=== PATIENT | female | born 1980 | race Caucasian/White ===

== ENCOUNTER 2024-06-28 15:22 | Outpatient (OUT) | payer OTHER, SELFPAY ==
[2024-06-28 16:17] LABS: Basophils Absolute Auto 0.1 10^3/uL (0.0-0.1); Basophils Percent Auto 0.9 % (0.2-2.0); Eosinophils Absolute Auto 0.2 10^3/uL (0.0-0.7); Eosinophils Percent Auto 3.4 % (0.9-7.0); Hematocrit 42.2 % (36.0-48.0); Hemoglobin 13.9 g/dL (12.0-16.0); Immature Granulocytes Abs Auto 0.01 10^3/uL (0.00-0.03); Immature Granulocytes Pct Auto 0.1 % (0.0-0.5); Lymphocytes Percent Auto 43.3 % (20.5-60.0); Mean Corpuscular HGB Conc 32.9 g/dL (29.9-35.2); Mean Corpuscular Hemoglobin 30.8 pg (26.7-34.0); Mean Corpuscular Volume 93.6 fL (81.0-99.0); Mean Platelet Volume 10.2 fL (9.5-13.5); Monocytes Absolute Auto 0.4 10^3/uL (0.3-0.8); Monocytes Percent Auto 5.2 % (1.7-12.0); Neutrophils Absolute Auto 3.3 10^3/uL (1.4-6.5); Neutrophils Percent Auto 47.1 % (43.0-75.0); Platelet Count 380 10^3/uL (150-450); Red Blood Count 4.51 10^6/uL (4.20-5.40); Red Cell Distribution Width 12.7 % (11.0-15.0)
[2024-06-28 16:18] LABS: Bilirubin Urine NEGATIVE (NEGATIVE); Blood Urine TRACE-I (NEGATIVE); Clarity Urine CLEAR (CLEAR); Color Urine LT. YELLOW (YELLOW); Glucose Urine UA NEGATIVE (NEGATIVE); Ketones Urine NEGATIVE (NEGATIVE); Leukocyte Esterase Urine NEGATIVE (NEGATIVE); Nitrite Urine NEGATIVE (NEGATIVE); Protein Urine NEGATIVE (NEG/TRACE); Specific Gravity Urine <=1.005 (1.005-1.025); Urobilinogen Urine 0.2 EU/dL (0.2-1.0); pH Urine 6.5 (5.0-9.0)
[2024-06-28 16:31] LABS: Urine Microscopic Indicated YES
[2024-06-28 16:33] LABS: Erythrocyte Sedimentation Rate 24 mm/hr (<=20)
[2024-06-28 16:37] LABS: Bacteria Urine TRACE #/HPF (NONE SEEN); Cast Seen? NONE SEEN #/LPF (NONE SEEN); Crystals Seen? None Seen #/HPF (None Seen); Mucus Urine NONE SEEN (NONE SEEN); RBC Urine 0-2 #/HPF (0-2); Squamous Epithelial Cell Urine FEW #/LPF (NONE/RARE); WBC Urine NONE SEEN #/HPF (NONE SEEN)
[2024-06-28 16:38] LABS: Free T4 0.96 ng/dL (0.76-1.46)
[2024-06-28 16:40] LABS: Alanine Aminotransferase 31 U/L (14-59); Albumin Globulin Ratio 1.1; Albumin Level 3.9 g/dL (3.4-5.0); Alkaline Phosphatase 71 U/L (46-116); Anion Gap 11.7; Aspartate Amino Transferase 24 U/L (15-37); BUN Creatinine Ratio 19.4; Bilirubin Total 0.3 mg/dL (0.2-1.0); Calcium 8.7 mg/dL (8.5-10.1); Carbon Dioxide 28.1 mmol/L (21.0-32.0); Chloride 103 mmol/L (98-107); Estimated GFR (African America >60 (>=60 mL/min/1.73m^2); Estimated GFR (Non-African Ame >60 (>=60 mL/min/1.73m^2); Globulin 3.4 g/dL; Glucose 82 mg/dL (74-106); Potassium 3.8 mmol/L (3.5-5.1); Sodium 139 mmol/L (136-145); Thyroid Stimulating Hormone 2.569 uIU/mL (0.358-3.740); Total Protein 7.3 g/dL (6.4-8.2)
[2024-06-30 04:08] LABS: Prolactin 10.5 ng/mL (4.8-33.4)
== END 2024-06-28 15:23 | disposition home or self-care (01) ==
LOC: LAB 15:25
PROVIDERS: PCP Nurse Practitioner; Visit Provider Nurse Practitioner
DX: R42 Dizziness and giddiness (principal); G43.009 Migraine without aura, not intractable, without status migrainosus; Z86.018 Personal history of other benign neoplasm
CPT/HCPCS: 36415; 80053; 81001; 83735; 84146; 84439; 84443; 85025; 85652

== ENCOUNTER 2024-08-11 10:55 | Outpatient (OUT) | payer OTHER, SELFPAY ==
--- NOTE | 2024-08-11 10:57 | MM_ITS ---
Patient Name: LIANE DIAZ MR#: [id number] : 1980 Exam Date: 08/11/2024 Ordering Doctor: TERESITA Mccauley CNP RADIOLOGY REPORT PROCEDURE: MM TOMOSYNTHESIS SCREENING BI COMPARISON: None. INDICATIONS: Screening Calculator Name NCI Breast Cancer Risk Assessment Tool 5 Year Breast Cancer Risk 0.60% Lifetime Breast Cancer Risk 8.00% Personal Breast Cancer No Personal Ovarian Cancer No Treatments None Family Cancers Grandfather-paternal with lung cancer at age ~72; Aunt-maternal with colon cancer at age ~55. LOCATION: [facility] BREAST COMPOSITION: There are scattered areas of fibroglandular density. FINDINGS: DIAGNOSTIC CATEGORY 2--BENIGN FINDING. NO CHANGE FROM COMPARISON. Scattered benign-appearing lymph nodes are present. RIGHT BREAST: No significant suspicious finding. LEFT BREAST: No significant suspicious finding. RECOMMENDATIONS: ROUTINE MAMMOGRAM AND CLINICAL EVALUATION IN 12 MONTHS. PLEASE NOTE: A NORMAL MAMMOGRAM DOES NOT EXCLUDE THE POSSIBILITY OF BREAST CANCER. A CLINICALLY SUSPICIOUS PALPABLE LUMP SHOULD BE BIOPSIED. Dictated by: Nic Wood MD on 08/11/2024 at 15:19 Approved by: Nic Wood MD on 08/11/2024 at 15:20
--- OUTSIDE RECORDS SUMMARY | 2024-08-11 11:10 | XMS_ITS | CCD ---
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 Name Role Phone MISC, DOCTOR Admitting Unavailable MISC, DOCTOR Attending Unavailable MISC, DOCTOR Primary Care Unavailable MISC, DOCTOR Consulting Unavailable Karly Mills Attending Provider Danae Burgess Primary Care Provider Danae Burgess Unavailable Aury Barnes Unavailable ALDA Burgess Primary Care Provider ALDA Santoyo Attending Provider Rosanna Santoyo Unavailable Rosanna Santoyo Attending Unavailable Rosanna Santoyo Admitting Unavailable NO FAMILY, PHYSICIAN Primary Care Unavailable NONE, XXXX Primary Care Physician Unavailab DO Karina Hooks Attending Unavaila DO Karina Anderson Admitting Unavaila Karen Boudreaux NP Primary Care Provider KARINA DENIS Attending Unavailable KAREN MCCAULEY Attending Unavailable KAREN MCCAULEY Referring Unavailable KAREN MCCAULEY Attending Unavailable Allergies Allergy Classification Reported Allergen(s) Allergy Type Date of Onset Reaction(s) Facility (11 sources) [facility] (3 sources) Penicillins (Antibiotic) Propensity to adverse reactions rash [employer] other things [employer] bake Other (8 sources) Penicillins Allergy to substance 4 Hives, Itching, Rash, Unknown [facility] (7 sources) Wound Dressing Adhesive Propensity to adverse reactions 4 Other [facility] Medications Current Medications Medication Drug Class(es) Dates Sig (Normalized) Sig (Original) methylPREDNISolone 4 mg oral tablet (1 source) Corticosteroid Start: 3 methylPREDNISolone 4 MG take half with breakfast, half with dinner Orally as directed for 6 days Mar, Active Wrist/Thumb Splint/Right Univ - (1 source) Start: 3 Wrist/Thumb Splint/Right Univ - as directed Mar, Active Problems Active Problems Problem Classification Problem Date Documented Da te Episodic/Chronic Cancer; other and unspecified primary (12 sources) History of prolactinoma; Translations: [Personal history of other benign neoplasm] Onset: 06-27-2024 06-27-2024 Episodic Conditions associated with dizziness or vertigo (12 sources) Dizziness and giddiness; Translations: [Dizziness and giddiness] Onset: 06-27-2024 06-27-2024 Episodic Headache; including migraine (12 sources) Migraine without aura, not refractory ; Translations: [Migraine without aura, not intractable, without status migrainosus] Onset: 06-27-2024 06-27-2024 Chronic Other connective tissue disease (2 sources) Other enthesopathies, not elsewhere classified Episodic Other injuries and conditions due to external causes (1 source) Unspecified injury of left wrist, hand and finger(s), initial encounter Episodic Other nervous system disorders (1 source) Polyneuropathy, unspecified; Translations: [POLYNEUROPATHY UNSPECIFIED] Onset: 10-15-2020 Chronic Unclassified (1 source) Unspecified injury of left wrist, hand and finger(s), initial encounter; Translations: [Unspecified injury of left wrist, hand and finger(s), initial encounter] Onset: 04-02-2023 Past or Other Problems Problem Classification Problem Date Documented Da te Episodic/Chronic Immunizations and screening for infectious disease (1 source) Contact with and (suspected) exposure to other viral communicable diseases Onset: 08-15-2021 Resolved: 08-15-2021 Episodic Results Test Name Value Interpretation Reference Range Facility MR BRAIN W AND WO CONTRAST ( ROUTINE)on 07-19-2024 MR BRAIN W AND WO CONTRAST (ROUTINE) Addendum is made following new addition of sequences apparently acquired during image acquisition that were not presented at the time of the original dictation: A variant of a pituitary protocol was performed, though the [id number]-[id number] are suboptimal to evaluate the pituitary gland. Initially reported differential considerations remain unchanged based on the newly presented sequences. Normal Not Available ALL CBC WITH AUTO DIFFon BASOPHILS ABSOLUTE [facility]1 [facility] Basophils/100 WBC (Bld) 0.9 % 0.2 - 2.0 % [facility] Eosinophils/100 WBC (Bld) 3.4 % 0.9 - 7.0 % [facility] Erythrocyte distribution width (RBC) [Ratio] 12.7 % 11.0 - 15.0 % [facility] Hematocrit (Bld) [Volume fraction] 42.2 % 36.0 - 48.0 % [facility] Hemoglobin (Bld) [Mass/Vol] 13.9 g/dL 12.0 - 16.0 g/dL [facility] IMMATURE GRANULOCYTES ABS AUTO 0.01 [facility] Immature granulocytes/100 WBC (Bld) 0.1 % 0.0 - 0.5 % [facility] LYMPHOCYTES ABSOLUTE AUTO 3 [facility] Lymphocytes/100 WBC (Bld) 43.3 % 20.5 - 60.0 % [facility] MCH (RBC) [Entitic mass] 30.8 pg 26.7 - 34.0 pg [facility] MCHC (RBC) [Mass/Vol] 32.9 g/dL 29.9 - 35.2 g/dL [facility] MCV (RBC) [Entitic vol] 93.6 fL 81.0 - 99.0 fL [facility] MONOCYTES ABSOLUTE AUTO 0.4 [facility] Monocytes/100 WBC (Bld) 5.2 % 1.7 - 12.0 % [facility] NEUTROPHILS ABSOLUTE AUTO 3.3 [facility] Neutrophils/100 WBC (Bld) 47.1 % 43.0 - 75.0 % [facility] Platelet mean volume (Bld) [Entitic vol] 10.2 fL 9.5 - 13.5 fL [facility] EO # 0.2 [facility] PLT 380 [facility] RBC 4.51 [facility] WBC 7 [facility] FSHon 11-14-2023 Follitropin Qn 16.9 m[IU]/mL Invalid Interpretation Code [facility] Comment on above: Result Comment: Adul t Female Range Follicular phase 3.5 - 12.5 Ovulation phase 4.7 - 21.5 Luteal phase 1.7 - 7.7 Postmenopausal 25.8 - 134.8 Performed at: [address] [id number] PhD Constance Baron Performed By: #### 2 [id number] #### [facility] Laboratory [address] [place] [address] CHEMISTRYOrdered By: SYSTEM SYSTEM on 11-12-2023 Prolactin 12.71 ng/mL Normal 3.34 - 26.72 ng/mL Remisol Chem TSH Qn 2.30 m[IU]/L Normal 0.34 - 5.60 mcIU/mL Remisol Chem Consent for Treatmenton Consent for Treatment [id number] Normal [facility] Physician Orderon 11-12-2023 Physician Order [id number] Normal [facility] Prolactinon 11-12-2023 Prolactin 12.71 ng/mL Normal 3.34-26.72 [facility] Comment on above: Performed By: #### 2 [id number] #### [facility] [address] [place] [address] TSH With T4fr Reflexon 11-11 TSH Qn 2.30 m[IU]/L Normal 0.34-5.60 [facility] Comment on above: Performed By: #### 2 [id number], [id number] #### [facility] [address] [place] [address] XR hand LT min 3V*on 023 XR hand LT min 3V* [facility] Main [address] [address] XRay Report Signed Patient: Norma Alatorre MR#: [id number] : 1980 Acct:[id number] Age/Sex: 43 / F ADM Date: 04/02/23 Loc: XDUCLY Room: Type: [facility] Attending Dr: Rosanna Santoyo MEDICAID BILLING CLERK Copies to: Rosanna Santoyo APRN Ordering Provider: Rosanna Santoyo APRN Date of Service: 04/02/23 XR/XR hand LT min 3V*: Injury of left hand, initial encounter LEFT HAND - 3 views REASON FOR EXAM: Fell 9 days ago now with pain. COMPARISON: None FINDINGS: No focal soft tissue abnormality. No acute bony process is seen. Joint spaces appear maintained. XR/XR hand LT min 3V* IMPRESSION: NO ACUTE BONY PROCESS. Impression dictated by: Renard Childers Jr., D.O.04/02/2023 4:17 PM Dictation Location: [facility] Transcribed By: [facility] 04/02/231616 Dictated By: Renard Childers Jr DO 04/02/23 161 Signed By: 04/02/23 161 Normal [facility] XR hand LT min 3V* [facility] [employer] Other XR hand LT min 3V* [facility] [employer] Other XR hand LT min 3V* [address] [place] [address] [employer] Other XR hand LT min 3V* [address] [employer] Other XR hand LT min 3V* XRay Report [employer] [facility] [employer] Other XR hand LT min 3V* Signed [employer] Other XR hand LT min 3V* Patient: Norma Alatorre MR#: [id number] [place] [employer] Other XR hand LT min 3V* 707 [employer] you [employer] Other XR hand LT min 3V* : 1980 Acct:[id number] [place] [employer] Other XR hand LT min 3V* Age/Sex: 43 / F ADM Date: 04/02/23 [employer] Other XR hand LT min 3V* Loc: XDUCLY Room: Type: REG CLI [employer] Other XR hand LT min 3V* Attending Dr: Rosanna Santoyo APRN [employer] you [employer] Other XR hand LT min 3V* Copies to: Rosanna Santoyo APRN [employer] Other XR hand LT min 3V* Ordering Provider: Rosanna Santoyo APRN [employer] Other XR hand LT min 3V* Date of Service: 04/02/23 [employer] Other XR hand LT min 3V* XR/XR hand LT min 3V*: Injury of left hand, initial encounter [employer] Other XR hand LT min 3V* LEFT HAND - 3 views [employer] Other XR hand LT min 3V* REASON FOR EXAM: Fell 9 days ago now with pain. [employer] other things [employer] Other XR hand LT min 3V* COMPARISON: None [employer] Other XR hand LT min 3V* FINDINGS: [employer] other things you bake Other XR hand LT min 3V* No focal soft tissue abnormality. No acute bony process is seen. Joint spaces appear maintained. [employer] other things you bake Other XR hand LT min 3V* XR/XR hand LT min 3V* [employer] other things you bake Other XR hand LT min 3V* IMPRESSION: [employer] other things you bake Other XR hand LT min 3V* NO ACUTE BONY PROCESS. [employer] other things you bake Other XR hand LT min 3V* Impression dictated by: Renard Childers Jr., D.O.04/02/2023 4:17 PM [employer] other [employer] Other XR hand LT min 3V* Dictation Location: [facility]-15 [employer] Other XR hand LT min 3V* Transcribed By: PWS 04/02/23 [facility] [employer] you bake Other XR hand LT min 3V* Dictated By: Renard Childers Jr, DO 04/02/23 [facility] [employer] other [employer] you bake Other XR hand LT min 3V* Signed By: [employer] you [employer] Other XR hand LT min 3V* 04/02/[address] [place] [address] [employer] Other COVID Quick Testingon 2020 Result Negative [employer] other things you bake Other CBC AUTO DIFFon 10-09-2020 Basophils (Bld) [#/Vol] 0.1 103/ul Normal 0.0-0.1 [facility] Comment on above: Performed By: #### C BC #### [facility] [address] [place], [place] [address] Jonathon Etta Basophils/100 WBC (Bld) 0.5 % Normal 0.2-2.0 [facility] Comment on above: Performed By: #### C BC #### [facility] [address] [place], [place] [address] Jonathon Etta Eosinophils (Bld) [#/Vol] 0.0 103/ul Normal 0.0-0.7 [facility] Comment on above: Performed By: #### C BC #### [facility] [address] [place], [place] [address] Jonathon Etta Eosinophils/100 WBC (Bld) 0.1 % Critically low 0.9-7.0 [facility] Comment on above: Performed By: #### C BC #### [facility] [address] [place], [place] [address] Jonathon Etta Erythrocyte distribution width (RBC) [Ratio] 12.8 % Normal 11.0-15.0 [facility] Comment on above: Performed By: #### C BC #### [facility] [address] [place] [address] Jonathon Quiles Hematocrit (Bld) [Volume fraction] 45.1 % Normal 36.0-48.0 [facility] Comment on above: Performed By: #### C BC #### [facility] [address] [place] [address] Jonathon Etta Hemoglobin (Bld) [Mass/Vol] 14.8 g/dL Normal 12.0-16.0 [facility] Comment on above: Performed By: #### C BC #### [facility] [address] [place] [address] Jonathonmoy Quiles IG # 0.05 10e3/ul Critically high 0.00-0.03 [facility] Comment on above: Performed By: #### C BC #### [facility] [address] [place] [address] Jonathonmoy Quiles IG % 0.5 % Normal 0.0-0.5 [facility] Comment on above: Performed By: #### C BC #### [facility] [address] [place] [address] Jonathonmoy Quiles Lymphocytes (Bld) [#/Vol] 1.2 103/ul Normal 1.2-3.8 [facility] Comment on above: Performed By: #### C BC #### [facility] [address] [place] [address] Jonathon Quiles Lymphocytes/100 WBC (Bld) 12.9 % Critically low 20.5-60.0 [facility] Comment on above: Performed By: #### C BC #### [facility] [address] [place], [place] [id number] Jonathon Quiles MANUAL DIFF REQ NO Normal [facility] Comment on above: Performed By: #### C BC #### [facility] [address] [place] [address] Jonathon Quiles MCH (RBC) [Entitic mass] 31.4 pg Normal 26.7-34.0 [facility] Comment on above: Performed By: #### C BC #### [facility] [address] [place], [place] [address] Jonathonmoy Quiles MCHC (RBC) [Mass/Vol] 32.8 g/dL Normal 29.9-35.2 [facility] Comment on above: Performed By: #### C BC #### [facility] [address] [place] [id number] Jonathon Etta MCV (RBC) [Entitic vol] 95.6 fL Normal 81.0-99.0 [facility] Comment on above: Performed By: #### C BC #### [facility] [address] [place], [place] [id number] Jonathon Etta Monocytes (Bld) [#/Vol] 0.2 103/ul Critically low 0.3-0.8 [facility] Comment on above: Performed By: #### C BC #### [facility] [address] [place], [place] [address] Jonathon Etta Monocytes/100 WBC (Bld) 1.8 % Normal 1.7-12.0 [facility] Comment on above: Performed By: #### C BC #### [facility] [address] [place], [place] [id number] Jonathon Etta Neutrophils (Bld) [#/Vol] 8.0 103/ul Critically high 1.4-6.5 [facility] Comment on above: Performed By: #### C BC #### [facility] [address] [place], [place] [address] Jonathon Etta Neutrophils/100 WBC (Bld) 84.2 % Critically high 43.0-75.0 [facility] Comment on above: Performed By: #### C BC #### [facility] [address] [place], [place] [id number] Jonathon Etta Platelet mean volume (Bld) [Entitic vol] 10.0 fL Normal 9.5-13.5 [facility] Comment on above: Performed By: #### C BC #### [facility] [address] [place], [place] [id number] Jonathon Etta Platelets (Bld) [#/Vol] 361 103/ul Normal 150-450 [facility] Comment on above: Performed By: #### C BC #### [facility] [address] [id number] Jonathon Quiles RBC (Bld) [#/Vol] 4.72 106/ul Normal 4.20-5.40 [facility] Comment on above: Performed By: #### C BC #### [facility] [address] [place], [place] [address] Jonathon Etta WBC (Bld) [#/Vol] 9.5 103/ul Normal 4.0-11.0 [facility] Comment on above: Performed By: #### C BC #### [facility] [address] [place], [place] [address] Jonathon Quiles FREE T4on 10-09-2020 Free T4 [Mass/Vol] 1.01 ng/dL Normal 0.78-2.19 [facility] Comment on above: Performed By: #### F T4 #### [facility] [address] [place], [place] [address] Jonathonmoy Quiles GLYCOHEMOGLOBIN A1Con 2020 Glucose [Mass/Vol] 111 mg/dL Normal [facility] Comment on above: Performed By: #### A 1C #### [facility] [address] [place], [place] [address] Jonathon Quiles HbA1c (Bld) [Mass fraction] 5.5 % Normal <=6.0 [facility] Comment on above: Performed By: #### A 1C #### [facility] [address] [place], [place] [address] Jonathon Quiles LIPID PROFILEon 10-09-2020 CHOL-HDL RATIO NORM SEE BELOW Normal [facility] Comment on above: Result Comment: 3.3 - 4.4 LOW RISK 4.4 - 7.1 AVERAGE RISK 7.1 - 11.0 MODERATE RISK >11.0 HIGH RISK Performed By: #### C MP, LIPID, TSH #### [facility] [address] [place], [place] [address] Jonathon Etta Cholesterol [Mass/Vol] 202 mg/dL Critically high <=200 [facility] Comment on above: Performed By: #### C MP, LIPID, TSH #### [facility] [address] [place], [place] [address] Jonathon Etta Cholesterol in HDL [Mass/Vol] > or = 60 mg/dl - LOW CARDIOVASCULAR RISK <40 mg/dl - HIGH CARDIOVASCULAR RISK Normal [facility] Comment on above: Performed By: #### C MP, LIPID, TSH #### [facility] [address] [place], [place] [address] Jonathon Etta Cholesterol in HDL [Mass/Vol] 79 mg/dL Normal [facility] Comment on above: Performed By: #### C MP, LIPID, TSH #### [facility] [address] [place] [id number] Jonathon Etta Cholesterol in LDL [Mass/Vol] SEE BELOW Normal [facility] Comment on above: Result Comment: <100 mg/dl OPTIMAL 100 - 129 mg/dl NEAR OR ABOVE OPTIMAL 130 - 159 mg/dl BORDERLINE HIGH 160 - 189 mg/dl HIGH >190 mg/dl VERY HIGH Performed By: #### C MP, LIPID, TSH #### [facility] [address] [place], [place] [address] Jonathon Etta Cholesterol in LDL [Mass/Vol] 109.2 mg/dL Normal [facility] Comment on above: Performed By: #### C MP, LIPID, TSH #### [facility] [address], [place] [address] Jonathon Etta Cholesterol.total/Ch olesterol in HDL [Mass ratio] 2.6 {ratio} Normal [facility] Comment on above: Performed By: #### C MP, LIPID, TSH #### [facility] [address] [place], [place] [address] Jonathon Etta Triglyceride [Mass/Vol] 69 mg/dL Normal <=150 [facility] Comment on above: Performed By: #### C MP, LIPID, TSH #### [facility] [address] [place], [place] [address] Jonathon Etta VLDL CALC 13.8 mg/dL Normal [facility] Comment on above: Performed By: #### C MP, LIPID, TSH #### [facility] [address] [place], [place] [address] Jonathon Etta PROF 14(COMP METB)on 021 Albumin [Mass/Vol] 4.1 g/dL Normal 3.5-5.0 [facility] Comment on above: Performed By: #### C MP, LIPID, TSH #### [facility] [address] [place], [place] [address] Jonathon Etta Albumin/Globulin [Mass ratio] 1.2 {ratio} Normal [facility] Comment on above: Performed By: #### C MP, LIPID, TSH #### [facility] [address] [place] [id number] Jonathon Etta ALP [Catalytic activity/Vol] 50 U/L Normal 38-126 [facility] Comment on above: Performed By: #### C MP, LIPID, TSH #### [facility] [address] [place] [id number] Jonathon Etta ALT [Catalytic activity/Vol] 23 U/L Normal 9-52 [facility] Comment on above: Performed By: #### C MP, LIPID, TSH #### [facility] [address] [place] [id number] Jonathon Etta Anion gap [Moles/Vol] 10.4 mmol/L Normal [facility] Comment on above: Performed By: #### C MP, LIPID, TSH #### [facility] [address] [place] [id number] Jonathon Etta AST [Catalytic activity/Vol] 13 U/L Critically low 14-36 [facility] Comment on above: Performed By: #### C MP, LIPID, TSH #### [facility] [address] [id number] Jonathon Etta Bilirubin Ql (U) 0.6 mg/dL Normal 0.2-1.3 [facility] Comment on above: Performed By: #### C MP, LIPID, TSH #### [facility] [address] [place], [place] [address] Jonathon Etta Calcium [Mass/Vol] 8.9 mg/dL Normal 8.4-10.2 [facility] Comment on above: Performed By: #### C MP, LIPID, TSH #### [facility] [address] [id number] Jonathon Etta Chloride [Moles/Vol] 103 mmol/L Normal 98-107 [facility] Comment on above: Performed By: #### C MP, LIPID, TSH #### [facility] [address] [place] [address] Jonathon Etta CO2 [Moles/Vol] 30.7 mmol/L Critically high 22.0-30.0 [facility] Comment on above: Performed By: #### C MP, LIPID, TSH #### [facility] [address] [address] Jonathon Etta Creatinine [Mass/Vol] 0.83 mg/dL Normal 0.52-1.04 [facility] Comment on above: Performed By: #### C MP, LIPID, TSH #### [facility] [address] [place] [address] Jonathon Etta EGFR-AF ARGENTINE >60 Normal >=60 [facility] Comment on above: Performed By: #### C MP, LIPID, TSH #### [facility] [address] [place] [address] Jonathon Etta EGFR-NON AF ARGENTINE >60 Normal >=60 [facility] Comment on above: Performed By: #### C MP, LIPID, TSH #### [facility] [address] [place] [id number] Jonathon Etta Globulin (S) [Mass/Vol] 3.4 g/dL Normal [facility] Comment on above: Performed By: #### C MP, LIPID, TSH #### [facility] [address] [place] [address] Jonathon Etta Glucose [Mass/Vol] 90 mg/dL Normal 74-106 [facility] Comment on above: Performed By: #### C MP, LIPID, TSH #### [facility] [address] [address] Jonathon Etta Potassium [Moles/Vol] 4.1 mmol/L Normal 3.4-5.0 [facility] Comment on above: Performed By: #### C MP, LIPID, TSH #### [facility] [address] [place], [place] [address] Jonathon Etta Protein [Mass/Vol] 7.5 g/dL Normal 6.1-8.2 [facility] Comment on above: Performed By: #### C MP, LIPID, TSH #### [facility] [address] [place], [place] [address] Jonathon Etta Sodium [Moles/Vol] 140 mmol/L Normal 137-145 [facility] Comment on above: Performed By: #### C MP, LIPID, TSH #### [facility] [address] [place], [place] [address] Jonathon Etta Urea nitrogen [Mass/Vol] 14.0 mg/dL Normal 7.0-17.0 [facility] Comment on above: Performed By: #### C MP, LIPID, TSH #### [facility] [address] [place], [place] [address] Jonathon Etta Urea nitrogen/Creatinine [Mass ratio] 16.9 mg/mg Normal [facility] Comment on above: Performed By: #### C MP, LIPID, TSH #### [facility] [address] [place], [place] [address] Jonathon Etta TSHon 10-09-2020 TSH Qn 1.432 uIU/mL Normal 0.470-4.680 [facility] Comment on above: Performed By: #### C MP, LIPID, TSH #### [facility] [address] [place], [place] [address] Jonathon Etta TSH Qn SEE BELOW Normal [facility] Comment on above: Result Comment: <0.3 4 UIU/ml HYPERTHYROID 0.34-5.60 UIU/ml EUTHYROID >5.60 UIU/ml HYPOTHYROID Performed By: #### C MP, LIPID, TSH #### [facility] [address] [place], [place] [address] Jonathon Etta Vital Signs Date Time Vital Sign Value Performing Clinician Facility 07-27-2024 15:58-0500 Body height 162.6 cm Karen Mccauley NP Work Phone: [facility] 07-27-2024 15:58-0500 Body mass index (BMI) [Ratio] 24.41 kg/m2 Karen Mccauley EDITOR DICTIONARY Work Phone: [facility] 07-27-2024 15:58-0500 Body temperature 97.81 [degF] Karen Fishgideon EDITOR DICTIONARY Work Phone: [facility] 07-27-2024 15:58-0500 Body weight 64.5 kg Karen Fishz EDITOR DICTIONARY Work Phone: [facility] 07-27-2024 15:58-0500 Diastolic blood pressure 80 mm[Hg] Karen Garciamodestaz EDITOR DICTIONARY Work Phone: [facility] 07-27-2024 15:58-0500 Heart rate 59 /min Karen Fishgideon EDITOR DICTIONARY Work Phone: [facility] 07-27-2024 15:58-0500 Respiratory rate 18 /min Karentae Fishz EDITOR DICTIONARY Work Phone: [facility] 07-27-2024 15:58-0500 SaO2% (BldA) [Mass fraction] 97 % Karen Fishz EDITOR DICTIONARY Work Phone: [facility] 07-27-2024 15:58-0500 Systolic blood pressure 110 mm[Hg] Karen Fishgideon EDITOR DICTIONARY Work Phone: [facility] 06-27-2024 14:23-0400 Body height 162.6 cm Karen Fishz EDITOR DICTIONARY Work Phone: [facility] 06-27-2024 14:23-0400 Body mass index (BMI) [Ratio] 23.79 kg/m2 Karentae Garciaholz EDITOR DICTIONARY Work Phone: [facility] 06-27-2024 14:23-0400 Body temperature 98.2 [degF] Karen Garciamodestaz EDITOR DICTIONARY Work Phone: [facility] 06-27-2024 14:23-0400 Body weight 62.87 kg Karen Aichholz EDITOR DICTIONARY Work Phone: [facility] 06-27-2024 14:23-0400 Diastolic blood pressure 74 mm[Hg] Karen Mccauley EDITOR DICTIONARY Work Phone: [facility] 06-27-2024 14:23-0400 Heart rate 65 /min Karen Mccauley EDITOR DICTIONARY Work Phone: [facility] 06-27-2024 14:23-0400 Respiratory rate 18 /min Karen Mccauley EDITOR DICTIONARY Work Phone: [facility] 06-27-2024 14:23-0400 SaO2% (BldA) [Mass fraction] 97 % Karen Mccauley EDITOR DICTIONARY Work Phone: [facility] 06-27-2024 14:23-0400 Systolic blood pressure 108 mm[Hg] Karen Mccauley EDITOR DICTIONARY Work Phone: [facility] 11-25-2023 15:20-0400 Body height 162.56 cm [facility] 11-25-2023 15:20-0400 Body mass index (BMI) [Ratio] 23.8 kg/m2 [facility] 11-25-2023 15:20-0400 Body temperature 99.1 [degF] [facility] 11-25-2023 15:20-0400 Body weight 62.82 kg [facility] 11-25-2023 15:20-0400 Diastolic blood pressure 71 mm[Hg] [facility] 11-25-2023 15:20-0400 Heart rate 79 /min [facility] 11-25-2023 15:20-0400 Respiratory rate 18 /min [facility] 11-25-2023 15:20-0400 SaO2% (BldA) [Mass fraction] 96 % [facility] 11-25-2023 15:20-0400 Systolic blood pressure 111 mm[Hg] [facility] 04-02-2023 15:30-0400 Body height 161.29 cm Rosanna Santyoo Other [employer] Other 04-02-2023 15:30-0400 Body mass index (BMI) [Ratio] 21.79 kg/m2 Rosanna Silverley Other [employer] [facility] [employer] [facility] [employer] Other 04-02-2023 15:30-0400 Body weight 56.7 kg Rosanna Silverley Other [employer] [facility] [employer] [facility] [employer] Other 04-02-2023 15:30-0400 Diastolic blood pressure 72 mm[Hg] Rosanna Silverley Other [employer] [facility] [employer] Other 04-02-2023 15:30-0400 Respiratory rate 18 /min Rosanna Silverley Other [employer] [facility] [employer] [facility] [employer] Other 04-02-2023 15:30-0400 SaO2% (BldA) [Mass fraction] 94 % Rosanna Silverley Other [employer] [facility] [employer] Other 04-02-2023 15:30-0400 Systolic blood pressure 117 mm[Hg] Rosanna Silverley Other [employer] [facility] [employer] Other 08-15-2021 13:45-0500 Body height 161.29 cm Aury Ginty Other [employer] [facility] [employer] Other 08-15-2021 13:45-0500 Body mass index (BMI) [Ratio] 21.79 kg/m2 Aury Ginty Other [employer] [facility] [employer] Other 08-15-2021 13:45-0500 Body temperature 97 [degF] Aury Ginty Other [employer] Other 08-15-2021 13:45-0500 Body weight 56.7 kg Aury Ginty Other [employer] [facility] [employer] Other 08-15-2021 13:45-0500 Respiratory rate 16 /min Aury Barnes Other [employer] Other 08-15-2021 13:45-0500 SaO2% (BldA) [Mass fraction] 99 % Aury Barnes Other [employer] Other Encounters Encounter Date Encounter Type Care Provider Facility Start: 07-27-2024 End: 07-27-2024 Office outpatient visit 15 minutes Karentae Mccauley EDITOR DICTIONARY Work Phone: [facility] Comment on above: Dizziness and giddin ess (Primary Dx); Migraine without aura and without status migrainosus, not intractable ([facility]); History of prolactinoma Start: 07-27-2024 End: 07-27-2024 ambulatory KAREN AICHHOLZ Not Available Start: 07-27-2024 End: 07-27-2024 Bamboo flowsheet Karen Aichholz EDITOR DICTIONARY Work Phone: [facility] Start: 07-27-2024 End: 07-27-2024 Bamboo flowsheet Karen Aichholz EDITOR DICTIONARY Work Phone: [facility] Start: 07-19-2024 End: 07-19-2024 ambulatory KAREN AICHHOLZ Not Available Start: 06-28-2024 End: 06-28-2024 Clinisync Result Encounter Karen Johannehholz EDITOR DICTIONARY Work Phone: [facility] Unsolicited Start: 06-28-2024 End: 06-28-2024 Clinisync Result Encounter Karen Aichholz EDITOR DICTIONARY Work Phone: [facility] Unsolicited Start: 06-27-2024 End: 06-27-2024 Office outpatient visit 25 minutes Karen Aicmoyholz EDITOR DICTIONARY Work Phone: [facility] Comment on above: Dizziness and giddin ess (Primary Dx); Migraine without aura and without status migrainosus, not intractable (CMS/HCC); History of prolactinoma Start: 06-27-2024 End: 06-27-2024 ambulatory KAREN GARCIAMODESTAGideon Not Available Start: 06-27-2024 End: 06-27-2024 Bamboo flowsheet Karen Mccauley EDITOR DICTIONARY Work Phone: [facility] Start: 06-27-2024 End: 06-27-2024 Bamboo flowsheet Karen Mccauley EDITOR DICTIONARY Work Phone: [facility] Start: 11-25-2023 End: 11-25-2023 ambulatory [facility] Work Phone: Start: 11-25-2023 End: 11-25-2023 Patient encounter procedure [facility] Work Phone: Start: 11-12-2023 End: 11-13-2023 ambulatory DO Karina Denis Facility:[facility] Start: 11-12-2023 End: 11-12-2023 Patient encounter procedure Karina Denis [facility] Start: 11-09-2023 End: 11-09-2023 ambulatory KARINA DENIS Not Available Start: 04-02-2023 End: 04-02-2023 ambulatory Rosanna Santoyo Facility:[facility] Start: 04-02-2023 End: 04-02-2023 Patient encounter procedure ALDA Burgess Work Phone: [facility] Work Phone: Start: 04-02-2023 End: 04-02-2023 ambulatory ALDA Burgess Work Phone: [facility] Work Phone: Start: 04-02-2023 Office outpatient vi sit 15 minutes Rosanna Santoyo [facility] Start: 08-15-2021 End: 08-15-2021 ambulatory Danae Burgess Other [employer] Other Start: 08-15-2021 Encounter by yeimy Burgess [facility] Start: 08-15-2021 Office outpatient vi sit 15 minutes Aury Barnes [facility] Start: 01-10-2021 End: 01-10-2021 Discharged Recurring Karly Mills Work Phone: [facility] Start: 10-15-2020 Encounter for genera l adult medical examination without abnormal findings [facility] Start: 10-09-2020 End: 10-10-2020 Patient encounter procedure [facility] Facility: Encounter for genera l adult medical examination without abnormal findings [facility] Procedures Date Procedure Procedure Detail Performing Clinician Start: 06-28-2024 ALL CBC WITH AUTO DIFF Karen Mccauley EDITOR DICTIONARY Work Phone: Start: 11-09-2023 Microscopic observat ion [Identifier] in Cervix by Cyto stain Karen Mccauley EDITOR DICTIONARY Work Phone: Start: 04-02-2023 Plain X-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 [address] [facility] Start: 09-22-2024 End: 09-22-2024 Patient encounter procedure 09/22/2024 3:00 PM EST Office Visit [facility] [address] [place] [address] Karen Mccauley, EDITOR DICTIONARY [address] [place] [address] [facility] Start: 07-27-2024 End: 07-27-2024 Patient encounter procedure 07/27/2024 3:40 PM EST Office Visit [facility] [address] [place] [address] Karen Mccauley, EDITOR DICTIONARY [address] [place] [id number] Arrived [facility] Comment on above: Arrived Start: 07-19-2024 End: 07-19-2024 Patient encounter procedure 07/19/2024 3:00 PM EST Office Visit [facility] [address] [place] [address] Karen Mccauley, EDITOR DICTIONARY [address] [place] [phone] [facility] Start: 06-27-2024 End: 06-27-2024 Patient encounter procedure 06/27/2024 2:20 PM EDT Office Visit [facility] [address] [place] [address] Karen Mccauley, EDITOR DICTIONARY [address] [place] [id number] Arrived [facility] Comment on above: Arrived Start: 06-27-2024 End: 06-27-2025 CBC W Auto Differential panel - Blood CBC and differential Lab Routine Dizziness and giddiness Expected: 06/27/2024 (Approximate), Expires: 06/27/2025 [facility] Work Phone: Comment on above: Expected: 06/27/2024 (Approximate), Expires: 06/27/2025 Start: 06-27-2024 End: 06-27-2025 Comprehensive metabolic 2000 panel - Serum or Plasma Comprehensive metabolic panel Lab Routine Dizziness and giddiness Expected: 06/27/2024 (Approximate), Expires: 06/27/2025 [facility] Comment on above: Expected: 06/27/2024 (Approximate), Expires: 06/27/2025 Start: 06-27-2024 End: 06-27-2025 Erythrocyte sedimentation rate Sedimentation rate, automated Lab Routine Dizziness and giddiness Migraine without aura and without status migrainosus, not intractable (CMS/HCC) Expected: 06/27/2024 (Approximate), Expires: 06/27/2025 [facility] Comment on above: Expected: 06/27/2024 (Approximate), Expires: 06/27/2025 Start: 06-27-2024 End: 06-27-2025 Magnesium [Mass/volume] in Serum or Plasma Magnesium Lab Routine Migraine without aura and without status migrainosus, not intractable (CMS/HCC) Expected: 06/27/2024 (Approximate), Expires: 06/27/2025 [facility] Comment on above: Expected: 06/27/2024 (Approximate), Expires: 06/27/2025 Start: 06-27-2024 End: 06-27-2025 Prolactin level Prolactin level Lab Routine History of prolactinoma Expected: 06/27/2024 (Approximate), Expires: 06/27/2025 [facility] Comment on above: Expected: 06/27/2024 (Approximate), Expires: 06/27/2025 Start: 06-27-2024 End: 06-27-2025 Thyrotropin [Units/volume] in Serum or Plasma TSH Lab Routine Dizziness and giddiness Expected: 06/27/2024 (Approximate), Expires: 06/27/2025 [facility] Comment on above: Expected: 06/27/2024 (Approximate), Expires: 06/27/2025 Start: 06-27-2024 End: 06-27-2025 Thyroxine (T4) free [Mass/volume] in Serum or Plasma T4, free Lab Routine Dizziness and giddiness Expected: 06/27/2024 (Approximate), Expires: 06/27/2025 [facility] Comment on above: Expected: 06/27/2024 (Approximate), Expires: 06/27/2025 Start: 06-27-2024 End: 06-27-2025 Urinalysis complete panel - Urine Urinalysis with reflex microscopic (clean catch) Lab Routine History of prolactinoma Expected: 06/27/2024 (Approximate), Expires: 06/27/2025 [facility] Comment on above: Expected: 06/27/2024 (Approximate), Expires: 06/27/2025 Start: 05-08-2024 Influenza vaccination Influenza Vacc ine (#1) [facility] Start: 2021 Screening for malign ant neoplasm of breast Mammogram [facility] Start: 2011 Screening for malign ant neoplasm of cervix HPV/Cotest [facility] Immunizations Immunization Date Immunization Notes Care Provider Juan resendiz 01-10-2021 COVID-19 mRNA,MUT126 b2 (Pfizer) Karly Mills Work Phone: [facility] Payers Date Payer Category Payer Private Health Insurance [id number] 2023 Self-pay [id number] 2023 Unknown [id number] 2.16.8 [id number] 1981 Unknown [id number] 2.16.84 [id number] 1981 Unknown [id number] 2.16.8 [id number] 1981 Unknown [id number] 2.16.84 [id number] 1981 Unknown [id number] 2.16.84 [id number] 1981 Unknown [id number] 2.16.84 [id number] 1981 Unknown [id number] 2.16.84 [id number] 1959 Unknown [id number] Unknown [id number] Unknown [id number] Unknown [id number] 2.16.8 [id number] Social History Date Type Detail Facility Tobacco smoking stat us [facility] Unknown if ever smoked [facility] Start: 1980 Sex Assigned At Female F [facility] Start: 11-09-2023 End: 07-26-2024 Sex Assigned At [facility] Tobacco smoking status No Smokin g Status Entered [facility] Start: 11-09-2023 End: 11-25-2023 Tobacco smoking status NHIS Never smoked tobacco (finding) [facility] Start: 11-09-2023 Tobacco use and exposure Smokeless tobacco non-user [facility] Start: 11-09-2023 End: 07-27-2024 Alcoholic beverage intake Current drinker of alcohol (finding) [facility] Start: 11-09-2023 End: 07-26-2024 History of Social function [facility] Start: 07-14-2023 Gender identity Identifies as female gender (finding) [facility] Start: 07-14-2023 Sexual orientation Heterosexual (fin ding) [facility] How often do you nee d to have someone help you when you read instructions, pamphlets, or other written material from your doctor or pharmacy [SILS] Never [facility] Do you belong to any clubs or organizations such as taoist groups, unions, fraternal or athletic groups, or school groups? No [facility] Are you now , , , , never or living with a partner? Living with partner [facility] How often to you hav e a drink containing alcohol? Monthly or less [facility] How many standard drinks containing alcohol do you have on a typical day? 1 or 2 [facility] How often do you hav e 6 or more drinks on 1 occasion? Never [facility] How hard is it for y ou to pay for the very basics like food, housing, medical care, and heating Not very hard [facility] Do you feel stress - tense, restless, nervous, or anxious, or unable to sleep at night because your mind is troubled all the time - these days [OSQ] Only a little [facility] (I/We) worried wheth er (my/our) food would run out before (I/we) got money to buy more. Never true [facility] NEGATED: Highlighted rowStart: SUYAPAF History of tobacco use Passive smoker [facility] Clinical Notes 08-15-2021 to 07-27-2024 Karen Mccauley NP - 07/27/2024 6:02 PM Rafael Mccauley NP - 07/27/2024 6:01 PM Rafael Mccauley NP - 07/27/2024 6:00 PM GLENROY GARCIA - 07/27/2024 3:40 PM ESTPatient Instructions Note Date & Type Note Facility 07-27-2024 History of Present illness Narrative Associated Problem(s): Dizziness and giddiness Labs normal Will start with neurology referral and go from there Associated Problem(s): History of prolactinoma Normal prolactin level MRI brain report quite confusion, will attempt to contact [facility] Radiologist to discuss with them the results, possible comparison to prior one Refer to Neuro Associated Problem(s): Migraine headache (CMS/HCC) Unclear if current sxs are related to her migraines with different variant of what Will review to neurology for second opinion Pt is still having episodes that are spiratic through out the day Pt recalls having an episode 1-2 weeks ago on (felt like she was going to pass out/ds it like the iv contrast going through her for the MRI machine feeling) pt stated she had the MRI done on the . She did have a time she felt odd in between those dates as well Pt is getting headaches- she's had 4 since her last visit Images from the original note were not included. Norma Alatorre is a 44 y.o. female presents with chief complaint of No chief complaint on file. HPI: HPI: Sxs started a couple months ago: heart racing, some shortness of breath, happens more active she is. Feels flushed in face, hot flash, no chest pain/pressure/heaviness or tightness,,last possibly 10 minutes or so. A month ago: confused, hard time sentence out, missing things at work. Hx Migraines: as far back as she remembers, usually severe pounding /pressure favors right side more, 5 years ago added symtpoms nausea. Prior to magnesium 3-5 times per month, then lessened may 2 in the last 6 months. Has hx pituitary adenoma, lost in follow up, sees dr mirian Morales in [facility], referred by [employer], possibly dating back to 2017. Denies any hx of double vision, blurry vision Family hx: migraines, no strokes, daughter has neurocardiogenic syncope, no brain anurysms, no MS. Stress levels; feels good, hx of depression/anxiety/panic attack, off meds since 2014 no issues Caffeine: coffee in the morning, and 1 pop at night,, rare ETOH use, no substance abuse SUBJECTIVE: MEDICATIONS: No current outpatient medications ALLERGIES: Allergies Allergen Reactions Morphine Hives Wound Dressing Adhesive Other Penicillins Hives, Itching, Rash and Unknown REVIEW OF SYMPTOMS: Review of Systems Constitutional: Negative for appetite change, chills and fever. HENT: Negative for congestion, ear pain and sore throat. Eyes: Negative for pain, discharge, redness and visual disturbance. Respiratory: Negative for cough, shortness of breath and wheezing. Cardiovascular: Negative for chest pain, palpitations and leg swelling. Gastrointestinal: Negative for abdominal pain, blood in stool, constipation, diarrhea, nausea and vomiting. Genitourinary: Negative for difficulty urinating, dysuria and frequency. Musculoskeletal: Negative for arthralgias, back pain, joint swelling and myalgias. Skin: Negative for rash and wound. Neurological: Positive for dizziness and headaches. Negative for tremors, seizures and syncope. Psychiatric/Behavioral: Negative for behavioral problems, self-injury and suicidal ideas. The patient is not nervous/anxious. Hematological: Does not bruise/bleed easily. Endocrine: Negative for polydipsia, polyphagia and polyuria. Allergic/Immunologic: Negative for environmental allergies and food allergies. PAST MEDICAL HISTORY Past Medical History: Diagnosis Date Adenomyosis Gallbladder disease 2007 H/O wisdom tooth extraction History of cholecystectomy Menorrhagia Migraine (CMS/HCC) Pelvic pain Past Surgical History: Procedure Laterality Date CHOLECYSTECTOMY 09/2008 FOOT SURGERY Right LAPAROSCOPIC HYSTERECTOMY 09/2009 Heavy bleeding LAPAROSCOPIC HYSTERECTOMY 2007 [facility] ; Disease: adenomyosis , pelvic pain, menorrhagia family history includes COPD in her mother; Colon cancer in an other family member; Depression in her mother; Lung cancer in her maternal grandfather; No Known Problems in her daughter. OBJECTIVE: Visit Vitals BP 110/80 (BP Location: Left arm, Patient Position: Sitting, BP Cuff Size: Adult long) Pulse 59 Temp 97.8 F (Temporal) Resp 18 Ht 5' 4 Wt 142 lb 3.2 oz SpO2 97% BMI 24.41 kg/m OB Status No Periods Smoking Status Never BSA 1.71 m Physical Exam Vitals and nursing note reviewed. Constitutional: General: She is not in acute distress. Appearance: Normal appearance. HENT: Head: Normocephalic and atraumatic. Right Ear: External ear normal. Left Ear: External ear normal. Nose: Nose normal. Mouth/Throat: Mouth: Mucous membranes are moist. Eyes: Extraocular Movements: Extraocular movements intact. Conjunctiva/sclera: Conjunctivae normal. Cardiovascular: Rate and Rhythm: Normal rate and regular rhythm. Pulses: Normal pulses. Heart sounds: Normal heart sounds. Pulmonary: Effort: Pulmonary effort is normal. Breath sounds: Normal breath sounds. Abdominal: General: Bowel sounds are normal. There is no distension. Palpations: Abdomen is soft. There is no mass. Tenderness: There is no abdominal tenderness. Musculoskeletal: General: Normal range of motion. Cervical back: Normal range of motion and neck supple. Right lower leg: No edema. Left lower leg: No edema. Skin: General: Skin is warm and dry. Capillary Refill: Capillary refill takes 2 to 3 seconds. Findings: No rash. Neurological: General: No focal deficit present. Mental Status: She is alert and oriented to person, place, and time. Psychiatric: Mood and Affect: Mood normal. Behavior: Behavior normal. Thought Content: Thought content normal. Judgment: Judgment normal. ASSESSMENT AND PLAN: Follow up in about 2 months (around 09/26/2024) for Recheck. Problem List Items Addressed This Visit Dizziness and giddiness - Primary Labs normal Will start with neurology referral and go from there Relevant Orders Ambulatory referral to Neurology Migraine headache (CMS/HCC) Unclear if current sxs are related to her migraines with different variant of what Will review to neurology for second opinion Relevant Orders Ambulatory referral to Neurology History of prolactinoma Normal prolactin level MRI brain report quite confusion, will attempt to contact [facility] Radiologist to discuss with them the results, possible comparison to prior one Refer to Neuro Relevant Orders Ambulatory referral to Neurology documented in this encounter [facility] 07-27-2024 Instructions Karen Mccauley NP - 07/27/2024 3:40 PM EST Referral to [facility] Neurology in [place] (previous [facility]) documented in this encounter [facility] 06-27-2024 History of Present illness Narrative Associated Problem(s): Dizziness and giddiness Check labs Differentials: migraine, cardiac, psych Fu in 3 weeks after labs and testing Reviewed stroke type symptoms if occur, go to ER Associated Problem(s): History of prolactinoma No fu for some time Will order prolactin level, and also check about imaging Associated Problem(s): Migraine headache (CMS/HCC) No current symptoms, however this may be related to migraine variant MRI needed, will check with radiology since we also need pituitary look as well Pt states that she had an episode on - around 1pm typical work day, pt experienced a body wave and two sharp panes in the right eye bow back to back, pains were short and did not last long however they were intense during. After the pain had stopped pt states she was shaky all over that last 20 mins or so. Pt states she did have lunch at 11:15am and drinks water through out the day. Pt went to [facility] where they did her bp and had 130s/80s and checked her sugar which was in the 80s She does suffer with migraines- she takes magnesium she was getting them 3-5times a month but now takes the mag and is now rare for her to get migraines. Pt takes estrovin complete for perimenopause an otc vitamin supplement Pt states that a month ago she had a different episode where she became confused, felt like she was in a fog that had messed with her speech or combinative awareness and concentration on her job. She states that she had slight confusion that lasted a couple days Pt states that she has never had an episode like that before however, pt states in the last few months though she has been going through a full body sweat when she is on the move and has a racing heart she typically needs to stop until she is fully cooled down Images from the original note were not included. Norma Alatorre is a 44 y.o. female presents with chief complaint of No chief complaint on file. HPI: Sxs started a couple months ago: heart racing, some shortness of breath, happens more active she is. Feels flushed in face, hot flash, no chest pain/pressure/heaviness or tightness,,last possibly 10 minutes or so. Then resolves.no dizziness However last episode at work, felt wavy, broke out in sweat, felt warm, 2 sharp pains to right alevism area, then got shaky feeling No NT or weakness to any side of body, no trouble with speech. A month ago: confused, hard time sentence out, missing things at work. Hx Migraines: as far back as she remembers, usually severe pounding /pressure favors right side more, 5 years ago added symtpoms nausea. Prior to magnesium 3-5 times per month, then lessened january 2 in the last 6 months. Has hx pituitary adenoma, lost in follow up, sees dr mirian Morales in [facility], referred by [employer], possibly dating back to 2017. Denies any hx of double vision, blurry vision Family hx: migraines, no strokes, daughter has neurocardiogenic syncope, no brain anurysms, no MS. Stress levels; feels good, hx of depression/anxiety/panic attack, off meds since 2014 no issues Caffeine: coffee in the morning, and 1 pop at night,, rare ETOH use, no substance abuse SUBJECTIVE: MEDICATIONS: No current outpatient medications ALLERGIES: Allergies Allergen Reactions Morphine Hives Wound Dressing Adhesive Other Penicillins Hives, Itching, Rash and Unknown REVIEW OF SYMPTOMS: Review of Systems Constitutional: Positive for hot flashes. Negative for appetite change, chills and fever. HENT: Negative for congestion, ear pain and sore throat. Eyes: Negative for pain, discharge, redness and visual disturbance. Respiratory: Negative for cough, shortness of breath and wheezing. Cardiovascular: Positive for palpitations. Negative for chest pain and leg swelling. Gastrointestinal: Negative for abdominal pain, blood in stool, constipation, diarrhea, nausea and vomiting. Genitourinary: Negative for difficulty urinating, dysuria and frequency. Musculoskeletal: Negative for arthralgias, back pain, joint swelling and myalgias. Skin: Negative for rash and wound. Neurological: Positive for dizziness and headaches. Negative for tremors, seizures and syncope. Psychiatric/Behavioral: Negative for behavioral problems, self-injury and suicidal ideas. The patient is not nervous/anxious. Hematological: Does not bruise/bleed easily. Endocrine: Negative for polydipsia, polyphagia and polyuria. Allergic/Immunologic: Negative for environmental allergies and food allergies. PAST MEDICAL HISTORY Past Medical History: Diagnosis Date Adenomyosis Gallbladder disease 2007 H/O wisdom tooth extraction History of cholecystectomy Menorrhagia Migraine (CMS/HCC) Pelvic pain Past Surgical History: Procedure Laterality Date CHOLECYSTECTOMY 09/2008 FOOT SURGERY Right LAPAROSCOPIC HYSTERECTOMY 09/2009 Heavy bleeding LAPAROSCOPIC HYSTERECTOMY 2007 LAV ; Disease: adenomyosis , pelvic pain, menorrhagia family history includes COPD in her mother; Colon cancer in an other family member; Depression in her mother; Lung cancer in her maternal grandfather; No Known Problems in her daughter. OBJECTIVE: Visit Vitals BP 108/74 (BP Location: Left arm, Patient Position: Sitting, BP Cuff Size: Adult long) Pulse 65 Temp 98.2 F (Temporal) Resp 18 Ht 5' 4 Wt 138 lb 9.6 oz SpO2 97% BMI 23.79 kg/m OB Status No Periods Smoking Status Never BSA 1.69 m Physical Exam Vitals and nursing note reviewed. Constitutional: General: She is not in acute distress. Appearance: Normal appearance. She is not ill-appearing or toxic-appearing. HENT: Head: Normocephalic and atraumatic. Right Ear: Tympanic membrane, ear canal and external ear normal. Left Ear: Tympanic membrane, ear canal and external ear normal. Nose: Nose normal. No congestion or rhinorrhea. Mouth/Throat: Mouth: Mucous membranes are moist. Pharynx: No oropharyngeal exudate or posterior oropharyngeal erythema. Eyes: General: No scleral icterus. Extraocular Movements: Extraocular movements intact. Conjunctiva/sclera: Conjunctivae normal. Pupils: Pupils are equal, round, and reactive to light. Neck: Vascular: No carotid bruit. Cardiovascular: Rate and Rhythm: Normal rate and regular rhythm. Pulses: Normal pulses. Heart sounds: Normal heart sounds. Pulmonary: Effort: Pulmonary effort is normal. No respiratory distress. Breath sounds: Normal breath sounds. No rales. Abdominal: General: Bowel sounds are normal. There is no distension. Palpations: Abdomen is soft. There is no mass. Tenderness: There is no abdominal tenderness. Musculoskeletal: General: Normal range of motion. Cervical back: Normal range of motion and neck supple. Right lower leg: No edema. Left lower leg: No edema. Lymphadenopathy: Cervical: No cervical adenopathy. Skin: General: Skin is warm and dry. Capillary Refill: Capillary refill takes 2 to 3 seconds. Findings: No rash. Neurological: General: No focal deficit present. Mental Status: She is alert and oriented to person, place, and time. Cranial Nerves: No cranial nerve deficit. Coordination: Coordination normal. Gait: Gait normal. Deep Tendon Reflexes: Reflexes normal. Comments: Neg romberg, neg ulnar drift Psychiatric: Mood and Affect: Mood normal. Behavior: Behavior normal. Thought Content: Thought content normal. Judgment: Judgment normal. ASSESSMENT AND PLAN: No follow-ups on file. Problem List Items Addressed This Visit Dizziness and giddiness - Primary Check labs Differentials: migraine, cardiac, psych Fu in 3 weeks after labs and testing Reviewed stroke type symptoms if occur, go to ER Relevant Orders CBC and differential Comprehensive metabolic panel TSH T4, free Sedimentation rate, automated Migraine headache (CMS/HCC) No current symptoms, however this may be related to migraine variant MRI needed, will check with radiology since we also need pituitary look as well Relevant Orders Sedimentation rate, automated Magnesium History of prolactinoma No fu for some time Will order prolactin level, and also check about imaging Relevant Orders Prolactin level Urinalysis with reflex microscopic (clean catch) documented in this encounter [facility] 11-12-2023 Evaluation + Plan note Diagnostic [facility] 04-02-2023 Evaluation note Encounter Date Diagnosis Assessment Notes Mar, Tendonitis of right hand (ICD-10 - M77.8) Discussed increased repetitive motions to right hand due to left hand injury has likely triggered inflammation of the tendons. Patient is given spica splint to wear during the day when she is not working to keep hand and wrist in a relaxed position. Left hand is x-rayed and without fracture. Discussed should progress regular movement to left hand as tolerated. Discussed with patient if tendinitis to right hand and wrist is not improving over the next week, may need to take time off work and should follow-up with PCP to discuss FMLA restrictions. We will try on Medrol Dosepak to help with inflammation. May use Aleve twice daily. Advised to take both steroid and Aleve with food and space out at least 2 hours. May use Tylenol in between. Ice and elevation encouraged. Patient verbalized understanding of treatment plan. Mar, Tendonitis of wrist, right (ICD-10 - M77.8) See above plan. Spica splint applied. Mar, Injury of left hand, initial encounter (ICD-10 - S69.92XA) X-ray negative for any dislocation or fracture. Progress activity as tolerated. Continue Tylenol or ibuprofen. [employer] Other 12-09-2021 Evaluation note* Encounter Date Diagnosis Assessment Notes Treatment Notes Treatment Clinical Notes Aug, Contact with and (suspected) exposure to other viral communicable diseases (ICD-10 - Z20.828) Advised patient that COVID antigen test was negative today. Supportive care as directed, increase fluids and rest, Tylenol/Motrin as directed, OTC cough/cold remedies as directed on packaging, cool mist humidifier, throat lozenges. Discussed infection control practices such as good hand washing and mask wearing. Patient to follow up with PCP if sx persist or worsen despite treatment for COVID PCR test. Immediate eval for SOB, difficulty, chest pain, fevers that do not break with antipyretic or any other concerning symptoms as reviewed on patient education handout. Patient verbalizes understanding and is agreeable to treatment plan. Patient left in stable condition Aug, Other Additional time spent conducting pre-visit phone call, screening for symptoms, instructions on social distancing, application and removal of PPE, and cleaning of examination room, equipment and supplies was preformed. Patient education given for testing methodology and results. Patient care instructions given in writting by [facility] Care At Home document [employer] Other Evaluation noteNo assessment information available [facility] InformationNort [employer] Other Evaluation note* Diagnosis Dizziness and giddiness- Primary Migraine without aura and without status migrainosus, not intractable (CMS/HCC) History of prolactinoma documented in this encounter [facility] HealthcareEvaluation note* Diagnosis Dizziness and giddiness- Primary Migraine without aura and without status migrainosus, not intractable (CMS/HCC) History of prolactinoma Dizziness and giddiness- Primary Migraine without aura and without status migrainosus, not intractable (CMS/HCC) History of prolactinoma documented in this encounter [facility] HealthcareHistory general Narrative - Reported* Type Description Date Medical History Acid reflux Surgical History Foot surgery [facility] 2000 Surgical History Childbirth [facility] 2003 Surgical History Childbirth [facility] Surgical History cholecystectomy [facility] 2007 Surgical History partial hysterectomy [facility] 2009 Hospitalization History see above [employer] other [employer] Other Hospital course Narrative No data available for this section [facility] No data available for this section [facility] No data available for this section [facility] Summary Purpose Family History No Family History Records Found Relationship Condition Age at Onset Recorded Date/T alexus father Family history of mental disorder Unknown Not Specified Family history of mental disorder Unknow n Unknown Chronic obstructive pulmonary disease Unk nown Advance Directives No Advanced Directives Records Found Advance Directive Response Recorded Date/ Time Advance Directives No June 28, 2018 11:58am Chief Complaint and Reason for Visit Chief Complaint Vaccine Ins 2nd dose only Chief Complaint cough Additional Source Comments INFORMATION SOURCE (unrecogn ized section and content) DATE CREATED AUTHOR 10/16/2020 [facility] DATE CREATED AUTHOR AUTHOR'S ORGANIZ ATION 04/10/2023 [facility] DATE CREATED AUTHOR AUTHOR'S ORGANIZ ATION 11/15/2023 [facility] DATE CREATED AUTHOR AUTHOR'S ORGANIZ ATION 07/30/2024 [facility] Specialists EPIC Goals (unrecognized section and content) Goals may be documented in a n alternate sectionNo InformationNo InformationGoals may be documented in an alternate sectionNo Information No data available for this sectionGoals may be documented in an alternate section REASON FOR VISIT (unrecogniz ed section and content) Update Jessy Demographics#16 ROBLES ACEVEDO ESCAPE, UPSET STOMACH, RUNNY NOSERIGHT HAND TENDINITIS FROM OVER USE,, JAMMED MIDDLE FINGER ON THE RIGHT HAND Care Teams (unrecognized sec tion and content) Team Status: Active Member Role Status Dates Danae Burgess APRN EDITOR DICTIONARY-C Primary Care Provider Active Team Status: Inactive Member Role Status Dates Danae Burgess APRN EDITOR DICTIONARY-C Primary Care Provider Active Rosanna Santoyo APRN Attending Provider Active Team Status: Active Member Role Status Dates PHYSICIAN NO FAMILY Primary Care Provider Active Team Status: Inactive Member Role Status Dates PHYSICIAN NO FAMILY Primary Care Provider Active Start: November 25, 2023 End: November 25, 2023 Gaye Loev NP-C Attending Provider Active S tart: November 25, 2023 End: November 25, 2023 [employer] Clerk Relationship Specialty Start Date End Date Karen Mccauley EDITOR DICTIONARY [address] [place] [id number] PCP - General 11/04/23 [employer] Clerk Relationship Specialty Start Date End Date Karen Mccauley RICARDO [address] [place] [phone] PCP - General 11/04/23 [employer]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 This clinical summary was aggregated from multiple sources. Caution should be exercised in using it in the provision of clinical care. This summary normalizes information from multiple sources, and as a consequence, information in this document may materially change the coding, format and clinical context of patient data. In addition, data may be omitted in some cases. CLINICAL DECISIONS SHOULD BE BASED ON THE PRIMARY CLINICAL RECORDS. [facility]. provides no warranty or guarantee of the accuracy or completeness of information in this document.
== END 2024-08-11 10:56 | disposition home or self-care (01) ==
LOC: MAMMO 10:55
PROVIDERS: PCP Nurse Practitioner; Visit Provider Nurse Practitioner
DX: Z12.31 Encounter for screening mammogram for malignant neoplasm of breast (principal); Z80.1 Family history of malignant neoplasm of trachea, bronchus and lung; Z80.0 Family history of malignant neoplasm of digestive organs
CPT/HCPCS: 77063; 77067

== ENCOUNTER 2024-10-25 15:24 | Outpatient (OUT) | payer OTHER, SELFPAY ==
--- OUTSIDE RECORDS SUMMARY | 2024-10-25 15:48 | XMS_ITS | CCD ---
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 Name Role Phone MISC, DOCTOR Admitting Unavailable MISC, DOCTOR Attending Unavailable MISC, DOCTOR Primary Care Unavailable MISC, DOCTOR Consulting Unavailable Karly Mills Attending Provider [phone] Danae Burgess Primary Care Provider Danae Burgess Unavailable Aury Barnes Unavailable ALDA Burgess Primary Care Provider ALDA Santoyo Attending Provider Rosanna Santoyo Unavailable Rosanna Santoyo Attending Unavailable Rosanna Santoyo Admitting Unavailable NO FAMILY, PHYSICIAN Primary Care Unavailable NONE, XXXX Primary Care Physician Unavailab le DO Karina Denis Attending Unavaila DO Karina Anderson Admitting Unavaila Karen Boudreaux NP Primary Care Provider [phone] EULALIA RODNEY Attending Unavailable KAREN MCCAULEY Referring Unavailable EULALIA RODNEY Referring Unavailable KARINA DENIS Attending Unavailable KAREN MCCAULEY Attending Unavailable KAREN MCCAULEY Referring Unavailable KAREN MCCAULEY Attending Unavailable Allergies Allergy Classification Reported Allergen(s) Allergy Type Date of Onset Reaction(s) Facility (14 sources) Morphine Drug Allergy 4 [facility] (3 sources) Penicillins (Antibiotic) Propensity to adverse reactions rash [facility] Other (11 sources) Penicillins Allergy to substance 4 Hives, Itching, Rash, Unknown [facility] (10 sources) Wound Dressing Adhesive Propensity to adverse reactions 4 Other [facility] Medications Current Medications Medication Drug Class(es) Dates Sig (Normalized) Sig (Original) amitriptyline hydrochloride 25 mg oral tablet (2 sources) Tricyclic Antidepressant Start: 5 End: 6 take 1 tablet by mouth once daily amitriptyline (Elavil) 25 MG tablet Indications: Migraine without aura and without status migrainosus, not intractable (CMS/HCC) Take 1 tablet (25 mg) by mouth Daily 30 tablet 2 10/04/2024 10/04/2025 Active Magnesium (2 sources) Magnesium ([facility] Magnesium Complex) 400 MG capsule Take by mouth Active methylPREDNISolone 4 mg oral tablet (1 source) Corticosteroid Start: 3 methylPREDNISolone 4 MG take half with breakfast, half with dinner Orally as directed for 6 days Mar, Active ubrogepant 100 mg oral tablet (2 sources) Start: 5 End: 5 take 1 tablet by mouth every two hours, then take 2 tablets by mouth every twenty-four hours Ubrogepant (Ubrelvy) 100 MG tablet Indications: Migraine without aura and without status migrainosus, not intractable (CMS/HCC) Take 1 tablet by mouth if needed (May repeat in 2 hours. Max of 2 tablets in 24 hours.) 16 tablet 2 10/04/2024 11/03/2024 Active Vitamin D-Vitamin K (VITAMIN D2 + K1 PO) (2 sources) Vitamin D-Vitami n K (VITAMIN D2 + K1 PO) Take by mouth Active Wrist/Thumb Splint/Right Univ - (1 source) Start: 3 Wrist/Thumb Splint/Right Univ - as directed Mar, Active Completed/Discontinued Medications Medication Drug Class(es) Dates Sig (Normalized) Sig (Original) Rhubarb preparation (2 sources) Non-Standardized Food Allergenic Extract, Non-Standardized Plant Allergenic Extract Rhubarb (Estroven Complete) 4 MG tablet Take by mouth Active Problems Active Problems Problem Classification Problem Date Documented Da te Episodic/Chronic Headache; including migraine (19 sources) Migraine without aura, not refractory ; Translations: [Migraine without aura, not intractable, without status migrainosus] Onset: 06-27-2024 06-27-2024 Chronic Nonmalignant breast conditions (2 sources) Increased ; Translations: [Galactorrhea not associated with childbirth] 10-05-2024 Episodic Other and unspecified benign neoplasm (4 sources) Pituitary adenoma; Translations: [Benign neoplasm of pituitary gland] 10-05-2024 Episodic Other circulatory disease (2 sources) Low blood pressure; Translations: [Hypotension, unspecified] 10-05-2024 Episodic Other connective tissue disease (2 sources) Other [...] te Episodic/Chronic Cancer; other and unspecified primary (15 sources) History of prolactinoma; Translations: [Personal history of other benign neoplasm] Onset: 06-27-2024 06-27-2024 Episodic Conditions associated with dizziness or vertigo (15 sources) Dizziness and giddiness; Translations: [Dizziness and giddiness] Onset: 06-27-2024 06-27-2024 Episodic Immunizations and screening for infectious disease (1 source) Contact with and (suspected) exposure to other viral communicable diseases Onset: 08-15-2021 Resolved: 08-15-2021 Episodic Results Test Name Value Interpretation Reference Range Facility MR PITUITARY W AND WO IV CON TRASTon 10-17-2024 MR PITUITARY W AND WO IV CONTRAST MR PITUITARY W AND WO IV CONTRAST INDICATION: Follow up pituitary adenoma, worsening headaches and migraines with dizziness and vomiting, heart racing for 2-3 months COMPARISON: Brain MRI July 19, 2024 TECHNIQUE: Sagittal T1, axial T2, axial T2* GRE, axial FLAIR, axial DWI sequences of the brain were acquired. Postcontrast axial T1 sequences of the brain were obtained. Pre and post contrast dynamic enhanced sequences through the pituitary gland were obtained. 7 mL of vueway IV. FINDINGS: No diffusion abnormalities. No acute or remote hemorrhage. CEREBRUM: Normal morphology. There are a couple of subtle T2/FLAIR hyperintensities in the left frontal cerebral white matter. No mass lesion or mass effect. CEREBELLUM: Normal. BRAINSTEM: Normal. VENTRICLES AND EXTRA-AXIAL SPACES: The ventricles are normal in size and symmetric. There are no extra-axial fluid collections. MAJOR ARTERIES/DURAL SINUSES: The dural venous sinuses and arterial structures enhance appropriately. SKULL/SCALP: Normal. PARANASAL SINUSES AND MASTOID AIR CELLS: Mild mucosal thickening in the bilateral maxillary sinuses, ethmoid air cells, sphenoid sinuses. There is minimal fluid in several of the mastoid air cells on the left. Sella: As seen previously, there is a bilobed appearing lesion involving the suprasellar cistern, which appears to efface the pituitary gland slightly and displaces the pituitary stalk posteriorly. The lesion measures roughly 10 mm transverse by 12.5 mm in craniocaudal long axis. The lesion abuts the optic chiasm. On dynamic contrast-enhanced imaging, there does not appear to be any appreciable enhancement of this bilobed mass. The pituitary gland and pituitary stalk enhance appropriately and homogeneously. IMPRESSION: 1. Stable appearing bilobed suprasellar nonenhancing mass lesion demonstrating signal that is relatively isoechoic to brain cortex. Differential considerations include an atypical isointense Rathke cleft cyst, hamartoma, atypical nonenhancing macro adenoma. Dictated on: 10/18/2024 11:04 AM This report has been electronically signed and approved by the interpreting Radiologist. Normal Not Available Comment on above: Order Comment: Thin cuts through the pituitary MR BRAIN W AND WO CONTRAST ( ROUTINE)on 07-19-2024 MR BRAIN W AND WO CONTRAST (ROUTINE) ADDENDUM to MR BRAIN W AND WO CONTRAST (ROUTINE) Addendum is made following new addition of sequences apparently acquired during image acquisition that were not presented at the time of the original dictation: A variant of a pituitary protocol was performed, though the [id number] are suboptimal to evaluate the pituitary gland. Initially reported differential considerations remain unchanged based on the newly presented sequences. ADDENDUM to MR BRAIN W AND WO CONTRAST (ROUTINE) Addendum is made following new addition of sequences apparently acquired during image acquisition that were not presented at the time of the original dictation: A variant of a pituitary protocol was performed, though the [id number] are suboptimal to evaluate the pituitary gland. Initially reported differential considerations remain unchanged based on the newly presented sequences. Addendum is made following new addition of sequences apparently acquired during image acquisition that were not presented at the time of the original dictation: A variant of a pituitary protocol was performed, though the [id number]-frim are suboptimal to evaluate the pituitary gland. Initially reported differential considerations remain unchanged based on the newly presented sequences. Addendum is made following new addition of sequences apparently acquired during image acquisition that were not presented at the time of the original dictation: A variant of a pituitary protocol was performed, though the mjwidw-rt-ymen are suboptimal to evaluate the pituitary gland. Initially reported differential considerations remain unchanged based on the newly presented sequences. TITLE OF EXAM: MR BRAIN W AND WO CONTRAST (ROUTINE) REASON FOR EXAM: Chronic with increased migraine headaches TECHNIQUE: Multisequence, multiplanar MRI of the brain prior to and following the intravenous administration of 7.5 cc Vueway. COMPARISON: None. FINDINGS: Brain and intracranial structures: The ventricles, cisterns, and sulci are symmetric and normal in volume/caliber for age. Mild burden nonspecific supratentorial white matter T2 signal hyperintense lesions, most commonly a consequence of migraine headaches in a patient of this age, versus early sequela of vascular risk factors. No abnormal parenchymal or meningeal enhancement. There is abnormal nodularity within the suprasellar cistern, difficult to differentiate from regional structures on the provided images. This structure is hypoenhancing relative to the pituitary gland, T2 signal hyperintense relative to the pituitary gland and regional optic nerve/chiasm and orbital robles matter, and T1 signal isointense to regional optic nerves/chiasm and orbital robles matter. There is a bilobed appearance best visualized on sagittal images. Overall, abnormal tissue measures approximately 1.0 x 0.8 x 1.1 cm (TV/AP/CC) (such as series 23/image 67 and 21/7). No hemorrhage or acute infarct. Skull/scalp: Normal. Orbits and face (included portions): Normal. Paranasal sinuses and mastoid air cells (included portions): Clear. IMPRESSION: Nodular tissue within the suprasellar cistern as described, 1.1 cm, which cannot be differentiated from and may possibly arise from the infundibulum, pituitary gland, tuber cinereum, optic chiasm, and/or cisternal optic nerves. Differential considerations are broad, including infiltrative etiologies (LCH, lymphocytic hypophysitis, IgG4 related hypophysitis) and neoplasia (pituitary adenoma, optic pathway or hypothalamic glioma, etc.). Correlate with endocrinologic testing. Consider contrast/noncontrast pituitary protocol MRI for further evaluation. DICTATED ON: 07/20/2024 2:46 PM This report has been electronically signed in approved by the interpreting radiologist. Normal Not Available ALL CBC WITH AUTO DIFFon BASOPHILS ABSOLUTE AUTO 0.1 [facility] Basophils/100 WBC (Bld) 0.9 % 0.2 - 2.0 % [facility] Eosinophils/100 WBC (Bld) 3.4 % 0.9 - 7.0 % [facility] Erythrocyte distribution width (RBC) [Ratio] 12.7 % 11.0 - 15.0 % [facility] Hematocrit (Bld) [Volume fraction] 42.2 % 36.0 - 48.0 % [facility] Hemoglobin (Bld) [Mass/Vol] 13.9 g/dL 12.0 - 16.0 g/dL [facility] IMMATURE GRANULOCYTES ABS AUTO 0.01 [facility] Immature granulocytes/100 WBC (Bld) 0.1 % 0.0 - 0.5 % [facility] LYMPHOCYTES ABSOLUTE AUTO 3 [facility] Lymphocytes/100 WBC (Bld) 43.3 % 20.5 - 60.0 % [facility] MCH (RBC) [Entitic mass] 30.8 pg 26.7 - 34.0 pg [facility] MCHC (RBC) [Mass/Vol] 32.9 g/dL 29.9 - 35.2 g/dL [facility] MCV (RBC) [Entitic vol] 93.6 fL 81.0 - 99.0 fL [facility] MONOCYTES ABSOLUTE AUTO 0.4 [facility] Monocytes/100 WBC (Bld) 5.2 % 1.7 - 12.0 % [facility] NEUTROPHILS ABSOLUTE AUTO 3.3 [facility] Neutrophils/100 WBC (Bld) 47.1 % 43.0 - 75.0 % [facility] Platelet mean volume (Bld) [Entitic vol] 10.2 fL 9.5 - 13.5 fL [facility] EO # 0.2 [facility] PLT 380 [facility] RBC 4.51 [facility] WBC 7 [facility] FSHon 11-14-2023 Follitropin Qn 16.9 m[IU]/mL Invalid Interpretation Code [facility] Comment on above: Result Comment: Adul t Female Range Follicular phase 3.5 - 12.5 Ovulation phase 4.7 - 21.5 Luteal phase 1.7 - 7.7 Postmenopausal 25.8 - 134.8 Performed at: [facility] [id number] PhD Constance Baron Performed By: #### 2 [id number] #### [facility] [address] [place] [address] CHEMISTRYOrdered By: SYSTEM SYSTEM on 11-12-2023 Prolactin 12.71 ng/mL Normal 3.34 - 26.72 ng/mL Remisol Chem TSH Qn 2.30 m[IU]/L Normal 0.34 - 5.60 mcIU/mL Remisol Chem Consent for Treatmenton Consent for Treatment [id number] #1.00TIFF Normal [facility] Physician Orderon 11-12-2023 Physician Order [id number]# 1.00TIFF Normal [facility] Prolactinon 11-12-2023 Prolactin 12.71 ng/mL Normal 3.34-26.72 [facility] Comment on above: Performed By: #### 2 [id number] #### [facility] [address] [place] [address] TSH With T4fr Reflexon 11-11 TSH Qn 2.30 m[IU]/L Normal 0.34-5.60 [facility] Comment on above: Performed By: #### 2 [id number], [id number] #### [facility] [address] [place] [address] XR hand LT min 3V*on 023 XR hand LT min 3V* [facility] [address] [place] [address] XRay Report Signed Patient: Norma Alatorre MR#: [id number] : 1980 Acct:[id number] Age/Sex: 43 / F ADM Date: 04/02/23 Loc: XDUCLY Room: Type: [facility] Attending Dr: Rosanna Santoyo [employer] Copies to: Rosanna Santoyo APRN Ordering Provider: [...] Childers Jr., D.O.04/02/2023 4:17 PM Dictation Location: [facility]-15 Transcribed By: [facility] 04/02/23 1617 Dictated By: Renard Childers Jr, DO 04/02/23 1616 Signed By: 04/02/23 1617 Normal [facility] XR hand LT min 3V* [facility] [employer] Other XR hand LT min 3V* [facility] [employer] Other XR hand LT min 3V* [address] [facility] [employer] Other XR hand LT min 3V* [place] [address] [facility] [employer] Other XR hand LT min 3V* XRay Report [facility] [employer] Other XR hand LT min 3V* Signed [facility] [employer] Other XR hand LT min 3V* Patient: Norma Alatorre MR#: [id number] [facility] [employer] Other XR hand LT min 3V* 707 [employer] [facility] [employer] Other XR hand LT min 3V* : 1980 Acct:[id number] [employer] Other XR hand LT min 3V* Age/Sex: 43 / F ADM Date: 04/02/23 [facility] Other XR hand LT min 3V* Loc: XDUCLY Room: Type: REG CLI [employer] [facility] [employer] Other XR hand LT min 3V* Attending Dr: Rosanna Santoyo [facility] [employer] Other XR hand LT min 3V* Copies to: Rosanna Santoyo [facility] [employer] Other XR hand LT min 3V* Ordering Provider: Rosanna Santoyo [employer] Other XR hand LT min 3V* Date of Service: 04/02/23 [employer] [facility] [employer] Other XR hand LT min 3V* XR/XR hand LT min 3V*: Injury of left hand, initial encounter [employer] Other XR hand LT min 3V* LEFT HAND - 3 views [employer] Other XR hand LT min 3V* REASON FOR EXAM: Fell 9 days ago now with pain. [employer] Other XR hand LT min 3V* COMPARISON: None [employer] Other XR hand LT min 3V* FINDINGS: [employer] Other XR hand LT min 3V* No focal soft tissue abnormality. No acute bony process is seen. Joint spaces appear maintained. [employer] Other XR hand LT min 3V* XR/XR hand LT min 3V* [employer] Other XR hand LT min 3V* IMPRESSION: [employer] Other XR hand LT min 3V* NO ACUTE BONY PROCESS. [employer] [facility] Other XR hand LT min 3V* Impression dictated by: Renard Childers Jr., D.O.04/02/2023 4:17 PM [facility] [employer] Other XR hand LT min 3V* Dictation Location: [facility]-15 [facility] [employer] Other XR hand LT min 3V* Transcribed By: PWS 04/02/23 [facility]7 [employer] Other XR hand LT min 3V* Dictated By: Renard Childers Jr, DO 04/02/23 [facility]6 [employer] Other XR hand LT min 3V* Signed By: [employer] Other XR hand LT min 3V* 04/02/[address] [place] [address] [employer] Other COVID Quick Testingon 2020 Result Negative [place] [employer] Other CBC AUTO DIFFon 10-09-2020 Basophils (Bld) [#/Vol] 0.1 103/ul Normal 0.0-0.1 [facility] Comment on above: Performed By: #### C BC #### [facility] [address] [place] [id number] Jonathon Etta Basophils/100 WBC (Bld) 0.5 % Normal 0.2-2.0 [facility] Comment on above: Performed By: #### C BC #### [facility] [address] [place], [place] [address] Jonathon Etta Eosinophils (Bld) [#/Vol] 0.0 103/ul Normal 0.0-0.7 [facility] Comment on above: Performed By: #### C BC #### [facility] [address] [place], [place] [address] Jonathon Etta Eosinophils/100 WBC (Bld) 0.1 % Critically low 0.9-7.0 [facility] Comment on above: Performed By: #### C BC #### [facility] [address] [place] [address] Jonathonmoy Quiles Erythrocyte distribution width (RBC) [Ratio] 12.8 % Normal 11.0-15.0 [facility] Comment on above: Performed By: #### C BC #### [facility] [address] [place] [address] Jonathon Etta Hematocrit (Bld) [Volume fraction] 45.1 % Normal 36.0-48.0 [facility] Comment on above: Performed By: #### C BC #### [facility] [address] [place] [address] Jonathon Etta Hemoglobin (Bld) [Mass/Vol] 14.8 g/dL Normal 12.0-16.0 [facility] Comment on above: Performed By: #### C BC #### [facility] [address] [place] [address] Jonathon Etta IG # 0.05 10e3/ul Critically high 0.00-0.03 [facility] Comment on above: Performed By: #### C BC #### [facility] [address] [place] [address] Jonathon Etta IG % 0.5 % Normal 0.0-0.5 [facility] Comment on above: Performed By: #### C BC #### [facility] [address] [place] [address] Jonathon Etta Lymphocytes (Bld) [#/Vol] 1.2 103/ul Normal 1.2-3.8 [facility] Comment on above: Performed By: #### C BC #### [facility] [address] [place] [address] Jonathon Etta Lymphocytes/100 WBC (Bld) 12.9 % Critically low 20.5-60.0 [facility] Comment on above: Performed By: #### C BC #### [facility] [address] [place] [address] Jonathon Carrascoen MANUAL DIFF REQ NO Normal [facility] Comment on above: Performed By: #### C BC #### [facility] [address] [place] [id number] Jonathonmoy Quiles MCH (RBC) [Entitic mass] 31.4 pg Normal 26.7-34.0 [facility] Comment on above: Performed By: #### C BC #### [facility] [address] [place] [id number] Jonathonmoy Quiles MCHC (RBC) [Mass/Vol] 32.8 g/dL Normal 29.9-35.2 [facility] Comment on above: Performed By: #### C BC #### [facility] [address] [place], [place] [id number] Jonathon Etta MCV (RBC) [Entitic vol] 95.6 fL Normal 81.0-99.0 [facility] Comment on above: Performed By: #### C BC #### [facility] [address] [place], [place] [id number] Jonathon Etta Monocytes (Bld) [#/Vol] 0.2 103/ul Critically low 0.3-0.8 [facility] Comment on above: Performed By: #### C BC #### [facility] [address] [place], [place] [id number] Jonathon Etta Monocytes/100 WBC (Bld) 1.8 % Normal 1.7-12.0 [facility] Comment on above: Performed By: #### C BC #### [facility] [address] [place], [place] [id number] Jonathon Etta Neutrophils (Bld) [#/Vol] 8.0 103/ul Critically high 1.4-6.5 [facility] Comment on above: Performed By: #### C BC #### [facility] [address] [place], [place] [id number] Jonathon Etta Neutrophils/100 WBC (Bld) 84.2 % Critically high 43.0-75.0 [facility] Comment on above: Performed By: #### C BC #### [facility] [address] [place], [place] [id number] Jonathon Etta Platelet mean volume (Bld) [Entitic vol] 10.0 fL Normal 9.5-13.5 [facility] Comment on above: Performed By: #### C BC #### [facility] [address] [place], [place] [id number] Jonathon Quiles Platelets (Bld) [#/Vol] 361 103/ul Normal 150-450 [facility] Comment on above: Performed By: #### C BC #### [facility] [address] [place], [place] [id number] Jonathonmoy Quiles RBC (Bld) [#/Vol] 4.72 106/ul Normal 4.20-5.40 [facility] Comment on above: Performed By: #### C BC #### [facility] [address] [place], [place] [id number] Jonathonmoy Quiles WBC (Bld) [#/Vol] 9.5 103/ul Normal 4.0-11.0 [facility] Comment on above: Performed By: #### C BC #### [facility] [address] [place], [place] [id number] Jonathon Quiles FREE T4on 10-09-2020 Free T4 [Mass/Vol] 1.01 ng/dL Normal 0.78-2.19 [facility] Comment on above: Performed By: #### F T4 #### [facility] [address] [place], [place] [id number] Jonathon Quiles GLYCOHEMOGLOBIN A1Con 2020 Glucose [Mass/Vol] 111 mg/dL Normal [facility] Comment on above: Performed By: #### A 1C #### [facility] [address] [place], [place] [id number] Jonathon Quiles HbA1c (Bld) [Mass fraction] 5.5 % Normal <=6.0 [facility] Comment on above: Performed By: #### A 1C #### [facility] [address] [place], [place] [id number] Jonathon Quiles LIPID PROFILEon 10-09-2020 CHOL-HDL RATIO NORM SEE BELOW Normal [facility] Comment on above: Result Comment: 3.3 - 4.4 LOW RISK 4.4 - 7.1 AVERAGE RISK 7.1 - 11.0 MODERATE RISK >11.0 HIGH RISK Performed By: #### C MP, LIPID, TSH #### [facility] [address] [place] [id number] Jonathon Etta Cholesterol [Mass/Vol] 202 mg/dL Critically high <=200 [facility] Comment on above: Performed By: #### C MP, LIPID, TSH #### [facility] [address] [place], [place] [id number] Jonathon Etta Cholesterol in HDL [Mass/Vol] > or = 60 mg/dl - LOW CARDIOVASCULAR RISK <40 mg/dl - HIGH CARDIOVASCULAR RISK Normal [facility] Comment on above: Performed By: #### C MP, LIPID, TSH #### [facility] [address] [place], [place] [id number] Jonathon Etta Cholesterol in HDL [Mass/Vol] 79 mg/dL Normal [facility] Comment on above: Performed By: #### C MP, LIPID, TSH #### [facility] [address] [place], [place] [id number] Jonathon Etta Cholesterol in LDL [Mass/Vol] SEE BELOW Normal [facility] Comment on above: Result Comment: <100 mg/dl OPTIMAL 100 - 129 mg/dl NEAR OR ABOVE OPTIMAL 130 - 159 mg/dl BORDERLINE HIGH 160 - 189 mg/dl HIGH >190 mg/dl VERY HIGH Performed By: #### C MP, LIPID, TSH #### [facility] [address] [place], [place] [id number] Jonathon Etta Cholesterol in LDL [Mass/Vol] 109.2 mg/dL Normal [facility] Comment on above: Performed By: #### C MP, LIPID, TSH #### [facility] [address] [place] [id number] Jonathon Etta Cholesterol.total/Ch olesterol in HDL [Mass ratio] 2.6 {ratio} Normal [facility] Comment on above: Performed By: #### C MP, LIPID, TSH #### [facility] [address] [place], [place] [phone] Jonathon Etta Triglyceride [Mass/Vol] 69 mg/dL Normal <=150 [facility] Comment on above: Performed By: #### C MP, LIPID, TSH #### [facility] [address] [place], [place] [address] Jonathon Etta VLDL CALC 13.8 mg/dL Normal [facility] Comment on above: Performed By: #### C MP, LIPID, TSH #### [facility] [address] [place], [place] [address] Jonathon Etta PROF 14(COMP METB)on 021 Albumin [Mass/Vol] 4.1 g/dL Normal 3.5-5.0 [facility] Comment on above: Performed By: #### C MP, LIPID, TSH #### [facility] [address] [place] [phone] Jonathon Etta Albumin/Globulin [Mass ratio] 1.2 {ratio} Normal [facility] Comment on above: Performed By: #### C MP, LIPID, TSH #### [facility] [address] [phone] Jonathon Etta ALP [Catalytic activity/Vol] 50 U/L Normal 38-126 [facility] Comment on above: Performed By: #### C MP, LIPID, TSH #### [facility] [address] [phone] Jonathon Etta ALT [Catalytic activity/Vol] 23 U/L Normal 9-52 [facility] Comment on above: Performed By: #### C MP, LIPID, TSH #### [facility] [address] [phone] Jonathon Etta Anion gap [Moles/Vol] 10.4 mmol/L Normal [facility] Comment on above: Performed By: #### C MP, LIPID, TSH #### [facility] [address] [phone] Jonathon Etta AST [Catalytic activity/Vol] 13 U/L Critically low 14-36 [facility] Comment on above: Performed By: #### C MP, LIPID, TSH #### [facility] [address] [phone] Jonathon Etta Bilirubin Ql (U) 0.6 mg/dL Normal 0.2-1.3 [facility] Comment on above: Performed By: #### C MP, LIPID, TSH #### [facility] [address] [address] Jonathon Etta Calcium [Mass/Vol] 8.9 mg/dL Normal 8.4-10.2 [facility] Comment on above: Performed By: #### C MP, LIPID, TSH #### [facility] [address] [address] Jonathon Etta Chloride [Moles/Vol] 103 mmol/L Normal 98-107 [facility] Comment on above: Performed By: #### C MP, LIPID, TSH #### [facility] [address] [place] [address] Jonathon Etta CO2 [Moles/Vol] 30.7 mmol/L Critically high 22.0-30.0 [facility] Comment on above: Performed By: #### C MP, LIPID, TSH #### [facility] [address] [place] [address] Jonathon Etta Creatinine [Mass/Vol] 0.83 mg/dL Normal 0.52-1.04 [facility] Comment on above: Performed By: #### C MP, LIPID, TSH #### [facility] [address] [place] [address] Jonathon Etta EGFR-AF MACEDONIAN >60 Normal >=[address] [facility] Comment on above: Performed By: #### C MP, LIPID, TSH #### [facility] [address] [place] [address] Jonathon Etta EGFR-NON AF MACEDONIAN >60 Normal >=60 [facility] Comment on above: Performed By: #### C MP, LIPID, TSH #### [facility] [address] [place] [address] Jonathon Etta Globulin (S) [Mass/Vol] 3.4 g/dL Normal [facility] Comment on above: Performed By: #### C MP, LIPID, TSH #### [facility] [address] [place] [address] Jonathon Etta Glucose [Mass/Vol] 90 mg/dL Normal 74-106 [facility] Comment on above: Performed By: #### C MP, LIPID, TSH #### [facility] [address] [address] Jonathon Etta Potassium [Moles/Vol] 4.1 mmol/L Normal 3.4-5.0 [facility] Comment on above: Performed By: #### C MP, LIPID, TSH #### [facility] [address] [place], [place] [phone] Jonathon Etta Protein [Mass/Vol] 7.5 g/dL Normal 6.1-8.2 [facility] Comment on above: Performed By: #### C MP, LIPID, TSH #### [facility] [address] [place] [address] Jonathon Etta Sodium [Moles/Vol] 140 mmol/L Normal 137-145 [facility] Comment on above: Performed By: #### C MP, LIPID, TSH #### [facility] [address] [place] [address] Jonathon Etta Urea nitrogen [Mass/Vol] 14.0 mg/dL Normal 7.0-17.0 [facility] Comment on above: Performed By: #### C MP, LIPID, TSH #### [facility] [address] [place] [address] Jonathon Etta Urea nitrogen/Creatinine [Mass ratio] 16.9 mg/mg Normal [facility] Comment on above: Performed By: #### C MP, LIPID, TSH #### [facility] [address] [place] [address] Jonathon Etta TSHon 10-09-2020 TSH Qn 1.432 uIU/mL Normal 0.470-4.680 [facility] Comment on above: Performed By: #### C MP, LIPID, TSH #### [facility] [address] [place] [address] Jonathon Etta TSH Qn SEE BELOW Normal [facility] Comment on above: Result Comment: <0.3 4 UIU/ml HYPERTHYROID 0.34-5.60 UIU/ml EUTHYROID >5.60 UIU/ml HYPOTHYROID Performed By: #### C MP, LIPID, TSH #### [facility] [address] [address] Jonathon Quiles Vital Signs Date Time Vital Sign Value Performing Clinician Facility 10-04-2024 17:08-0500 Body height 162.6 cm Eulalia Ronel DO Work Phone: [facility] 10-04-2024 17:08-0500 Body mass index (BMI) [Ratio] 24.58 kg/m2 Eulalia Ronel DO Work Phone: [facility] 10-04-2024 17:08-0500 Body weight 64.95 kg Eulalia Ronel DO Work Phone: [facility] 10-04-2024 17:08-0500 Diastolic blood pressure 80 mm[Hg] Eulalia Ronel DO Work Phone: [facility] 10-04-2024 17:08-0500 Heart rate 72 /min Eulalia Ronel DO Work Phone: [facility] 10-04-2024 17:08-0500 SaO2% (BldA) [Mass fraction] 98 % Eulalia Ronel DO Work Phone: [facility] 10-04-2024 17:08-0500 Systolic blood pressure 124 mm[Hg] Eulalia Ronel DO Work Phone: [facility] 07-27-2024 15:58-0500 Body height 162.6 cm Karen Mccauley [employer] Work Phone: [facility] 07-27-2024 15:58-0500 Body mass index (BMI) [Ratio] 24.41 kg/m2 Karen Mccauley [employer] Work Phone: [facility] 07-27-2024 15:58-0500 Body temperature 97.81 [degF] Karen Mccauley [employer] Work Phone: [facility] 07-27-2024 15:58-0500 Body weight 64.5 kg Karen Mccauley [employer] Work Phone: [facility] 07-27-2024 15:58-0500 Diastolic blood pressure 80 mm[Hg] Karen Joseholz [employer] Work Phone: [facility] 07-27-2024 15:58-0500 Heart rate 59 /min Karen Johannehholz [employer] Work Phone: [facility] 07-27-2024 15:58-0500 Respiratory rate 18 /min Karen Aichholz [employer] Work Phone: [facility] 07-27-2024 15:58-0500 SaO2% (BldA) [Mass fraction] 97 % Karen Joseholz [employer] Work Phone: [facility] 07-27-2024 15:58-0500 Systolic blood pressure 110 mm[Hg] Karen Aichholz [employer] Work Phone: [facility] 06-27-2024 14:23-0400 Body height 162.6 cm Karen Johannehholz [employer] Work Phone: [facility] 06-27-2024 14:23-0400 Body mass index (BMI) [Ratio] 23.79 kg/m2 Karen Johannehholz [employer] Work Phone: [facility] 06-27-2024 14:23-0400 Body temperature 98.2 [degF] Karen Johannehholz [employer] Work Phone: [facility] 06-27-2024 14:23-0400 Body weight 62.87 kg Karen Johannehholz [employer] Work Phone: [facility] 06-27-2024 14:23-0400 Diastolic blood pressure 74 mm[Hg] Karen Aichholz [employer] Work Phone: [facility] 06-27-2024 14:23-0400 Heart rate 65 /min Karen Aichholz [employer] Work Phone: [facility] 06-27-2024 14:23-0400 Respiratory rate 18 /min Karen Aichholz [employer] Work Phone: [facility] 06-27-2024 14:23-0400 SaO2% (BldA) [Mass fraction] 97 % Karen Garciakelvin [employer] Work Phone: [facility] 06-27-2024 14:23-0400 Systolic blood pressure 108 mm[Hg] Karen Mccauley [employer] Work Phone: [facility] 11-25-2023 15:20-0400 Body height 162.56 cm [facility] 11-25-2023 15:20-0400 Body mass index (BMI) [Ratio] 23.8 kg/m2 [facility] 11-25-2023 15:20-0400 Body temperature 99.1 [degF] [facility] 11-25-2023 15:20-0400 Body weight 62.82 kg [facility] 11-25-2023 15:20-0400 Diastolic blood pressure 71 mm[Hg] [facility] 11-25-2023 15:20-0400 Heart rate 79 /min [facility] 11-25-2023 15:20-0400 Respiratory rate 18 /min [facility] 11-25-2023 15:20-0400 SaO2% (BldA) [Mass fraction] 96 % [facility] 11-25-2023 15:20-0400 Systolic blood pressure 111 mm[Hg] [facility] 04-02-2023 15:30-0400 Body height 161.29 cm Rosanna Santoyo Other [employer] [facility] [employer] Other 04-02-2023 15:30-0400 Body mass index (BMI) [Ratio] 21.79 kg/m2 Rosanna Santoyo Other [employer] Other 04-02-2023 15:30-0400 Body weight 56.7 kg Rosanna Santoyo Other [employer] Other 04-02-2023 15:30-0400 Diastolic blood pressure 72 mm[Hg] Rosanna Santoyo Other [employer] Other 04-02-2023 15:30-0400 Respiratory rate 18 /min Rosanna Santoyo Other [employer] Other 04-02-2023 15:30-0400 SaO2% (BldA) [Mass fraction] 94 % Rosanna Santoyo Other [employer] Other 04-02-2023 15:30-0400 Systolic blood pressure 117 mm[Hg] Rosanna Santoyo Other [employer] Other 08-15-2021 13:45-0500 Body height 161.29 cm Aury Ginty Other [employer] Other 08-15-2021 13:45-0500 Body mass index (BMI) [Ratio] 21.79 kg/m2 Aury Ginty Other [employer] Other 08-15-2021 13:45-0500 Body temperature 97 [degF] Aury Ginty Other [employer] Other 08-15-2021 13:45-0500 Body weight 56.7 kg Aury Ginty Other [employer] Other 08-15-2021 13:45-0500 Respiratory rate 16 /min Aury Ginty Other [employer] Other 08-15-2021 13:45-0500 SaO2% (BldA) [Mass fraction] 99 % Aury Ginty Other [employer] Other Encounters Encounter Date Encounter Type Care Provider Facility Start: 10-17-2024 End: 10-17-2024 ambulatory EULALIA RONEL Not Available Start: 10-04-2024 End: 10-04-2024 Office outpatient new 45 minutes Eulalia Rodney DO Work Phone: [facility] Comment on above: Migraine without aur a and without status migrainosus, not intractable (CMS/HCC) (Primary Dx); Hypotension, unspecified hypotension type; Migraine variant (CMS/HCC); Pituitary adenoma (CMS/HCC); Galactorrhea Start: 10-04-2024 End: 10-04-2024 ambulatory EULALIA RODNEY Not Available Start: 10-04-2024 End: 10-04-2024 Bamboo flowsheet Eulalia Rodney DO Work Phone: [facility] Start: 10-04-2024 End: 10-04-2024 Bamboo flowsheet Eulalia Rodney DO Work Phone: [facility] Start: 07-27-2024 End: 07-27-2024 Office outpatient visit 15 minutes Karen Mccauley [employer] Work Phone: [facility] Comment on above: Dizziness and giddin ess (Primary Dx); Migraine without aura and without status migrainosus, not intractable (CMS/HCC); History of prolactinoma Start: 07-27-2024 End: 07-27-2024 ambulatory KAREN AICHHOLZ Not Available Start: 07-27-2024 End: 07-27-2024 Bamboo flowsheet Karen Polinaz [employer] Work Phone: [facility] Start: 07-27-2024 End: 07-27-2024 Bamboo flowsheet Karen Aichholz [employer] Work Phone: [facility] Start: 07-19-2024 End: 07-19-2024 ambulatory KAREN AICHHOLZ Not Available Start: 06-28-2024 End: 06-28-2024 Clinisync Result Encounter Karen Mccauley [employer] Work Phone: [facility] Unsolicited Start: 06-28-2024 End: 06-28-2024 Clinisync Result Encounter Karen Mccauley [employer] Work Phone: [facility] Unsolicited Start: 06-27-2024 End: 06-27-2024 Office outpatient visit 25 minutes Karen Mccauley [employer] Work Phone: [facility] Comment on above: Dizziness and giddin ess (Primary Dx); Migraine without aura and without status migrainosus, not intractable (CMS/HCC); History of prolactinoma Start: 06-27-2024 End: 06-27-2024 ambulatory KAREN PARISA Not Available Start: 06-27-2024 End: 06-27-2024 Bamboo flowsheet Karen Parisa [employer] Work Phone: [facility] Start: 06-27-2024 End: 06-27-2024 Bamboo flowsheet Karen Johannemoykelvin [employer] Work Phone: [facility] Start: 11-25-2023 End: 11-25-2023 ambulatory [facility] Work Phone: Start: 11-25-2023 End: 11-25-2023 Patient encounter procedure [facility] Work Phone: Start: 11-12-2023 End: 11-13-2023 ambulatory DO Karina Denis Facility:[facility] Start: 11-12-2023 End: 11-12-2023 Patient encounter procedure Karina Denis [facility] Start: 11-09-2023 End: 11-09-2023 ambulatory KARINA DENIS Not Available Start: 04-02-2023 End: 04-02-2023 ambulatory Rosanna Santoyo Facility:[facility] Start: 04-02-2023 End: 04-02-2023 Patient encounter procedure ALDA Burgess Work Phone: [facility] Work Phone: Start: 04-02-2023 End: 04-02-2023 ambulatory [employer] Danaetae Juan Aditya Work Phone: [facility] Work Phone: Start: 04-02-2023 Office outpatient vi sit 15 minutes Rosannakrysten Santoyo [facility] Start: 08-15-2021 End: 08-15-2021 ambulatory Danae Aditya Other [employer] Other Start: 08-15-2021 Encounter by compute r link Danae Aditya [facility] Start: 08-15-2021 Office outpatient vi sit 15 minutes Aury Barnes [facility] Start: 01-10-2021 End: 01-10-2021 Discharged Recurring M Tevin Mills Work Phone: [facility] Start: 10-15-2020 Encounter for genera l adult medical examination without abnormal findings [facility] Start: 10-09-2020 End: 10-10-2020 Patient encounter procedure DOCTOR [facility] Facility: Encounter for genera l adult medical examination without abnormal findings [facility] Procedures Date Procedure Procedure Detail Performing Clinician Start: 08-11-2024 Mammography Eulalia cortes DO Work Phone: Start: 06-28-2024 ALL CBC WITH AUTO DIFF Karen Mccauley [employer] Work Phone: Start: 11-09-2023 Microscopic observat ion [Identifier] in Cervix by Cyto stain Karen Mccauley [employer] Work Phone: Start: 04-02-2023 Plain X-ray of left hand [employer] Danae Aditya Work Phone: Plan of Treatment Date Care Activity Detail Author Start: 11-08-2026 Screening for malign ant neoplasm of cervix [facility] Start: 08-11-2025 Screening for malign ant neoplasm of breast Mammogram [facility] Start: 03-06-2025 Influenza vaccination Influenza Vacc ine (#1) [facility] Comment on above: Postponed from 05/08 (Patient Refused) Start: 11-22-2024 End: 11-22-2024 Patient encounter procedure 11/22/2024 4:15 PM EDT Office Visit [facility] BAKERARD [place] [phone] Eulalia Rodney DO [address] [place] [address] [facility] Start: 11-14-2024 End: 11-14-2024 Patient encounter procedure 11/14/2024 9:00 AM EDT Office Visit [facility] [address] KEVIN D [address] [phone] Karina Denis DO [address] [address] [facility] Start: 10-05-2024 End: 10-05-2025 Follicle stimulating hormone Follicle stimulating hormone Lab Routine Pituitary adenoma (CMS/HCC) Galactorrhea Expected: 10/05/2024 (Approximate), Expires: 10/05/2025 [facility] Comment on above: Expected: 10/05/2024 (Approximate), Expires: 10/05/2025 Start: 10-05-2024 End: 10-05-2025 Luteinizing hormone Luteinizing hormone Lab Routine Pituitary adenoma (CMS/HCC) Galactorrhea Expected: 10/05/2024 (Approximate), Expires: 10/05/2025 [facility] Comment on above: Expected: 10/05/2024 (Approximate), Expires: 10/05/2025 Start: 10-05-2024 End: 10-05-2025 MR Pituitary and Sella turcica WO and W contrast IV MR BRAIN PITUITARY W & WO CONTRAST Imaging Routine Pituitary adenoma (CMS/HCC) Expected: 10/05/2024, Expires: 10/05/2025 [facility] Work Phone: Comment on above: Expected: 10/05/2024 , Expires: 10/05/2025 Start: 10-05-2024 End: 10-05-2025 Prolactin Prolactin Lab Routine Pituitary adenoma (CMS/HCC) Galactorrhea Expected: 10/05/2024 (Approximate), Expires: 10/05/2025 [facility] Comment on above: Expected: 10/05/2024 (Approximate), Expires: 10/05/2025 Start: 10-04-2024 End: 10-04-2024 Patient encounter procedure 10/04/2024 5:00 PM EST Office Visit [facility] [address] [address] [place] [phone] Eulalia Rodney DO [address] [place] [address] Migraine without aura and without status migrainosus, not intractable (CMS/HCC); History of prolactinoma; Dizziness and giddiness [facility] [place] Comment on above: Migraine without aur a and without status migrainosus, not intractable (CMS/HCC); History of prolactinoma; Dizziness and giddiness Start: 09-22-2024 End: 09-22-2024 Patient encounter procedure 09/22/2024 3:00 PM EST Office Visit [facility] [address] [place] [address] Karen Mccauley, RICARDO [address] [place] [phone] RON[facility] ELIZ Start: 07-27-2024 End: 07-27-2024 Patient encounter procedure 07/27/2024 3:40 PM EST Office Visit [facility] [address] [place] [address] Karen Mccauley NP [address] [place] [phone] [facility] on above: Arrived Start: 07-19-2024 End: 07-19-2024 Patient encounter procedure 07/19/2024 3:00 PM EST Office Visit [facility] [address] [place] [phone] Karen Mccauley, [employer] [address] [place] [phone] [facility] Start: 06-27-2024 End: 06-27-2024 Patient encounter procedure 06/27/2024 2:20 PM EDT Office Visit [facility] [address] [place] [phone] Karen Mccauley, [employer] [address] [place] [address] Arrived [facility] Comment on above: Arrived Start: 06-27-2024 End: 06-27-2025 CBC W Auto Differential panel - Blood CBC and differential Lab Routine Dizziness and giddiness Expected: 06/27/2024 (Approximate), Expires: 06/27/2025 [facility] Work Phone: Comment on above: Expected: 06/27/2024 (Approximate), Expires: 06/27/2025 Start: 06-27-2024 End: 06-27-2025 Comprehensive metabolic 2000 panel - Serum or Plasma Comprehensive metabolic panel Lab Routine Dizziness and giddiness Expected: 06/27/2024 (Approximate), Expires: 06/27/2025 [facility] Comment on above: Expected: 06/27/2024 (Approximate), Expires: 06/27/2025 Start: 06-27-2024 End: 06-27-2025 Erythrocyte sedimentation rate Sedimentation rate, automated Lab Routine Dizziness and giddiness Migraine without aura and without status migrainosus, not intractable (CMS/HCC) Expected: 06/27/2024 (Approximate), Expires: 06/27/2025 [facility] Comment on above: Expected: 06/27/2024 (Approximate), Expires: 06/27/2025 Start: 06-27-2024 End: 06-27-2025 Magnesium [Mass/volume] in Serum or Plasma Magnesium Lab Routine Migraine without aura and without status migrainosus, not intractable (CMS/HCC) Expected: 06/27/2024 (Approximate), Expires: 06/27/2025 [facility] Comment on above: Expected: 06/27/2024 (Approximate), Expires: 06/27/2025 Start: 06-27-2024 End: 06-27-2025 Prolactin level Prolactin level Lab Routine History of prolactinoma Expected: 06/27/2024 (Approximate), Expires: 06/27/2025 [facility] Comment on above: Expected: 06/27/2024 (Approximate), Expires: 06/27/2025 Start: 06-27-2024 End: 06-27-2025 Thyrotropin [Units/volume] in Serum or Plasma TSH Lab Routine Dizziness and giddiness Expected: 06/27/2024 (Approximate), Expires: 06/27/2025 [facility] Comment on above: Expected: 06/27/2024 (Approximate), Expires: 06/27/2025 Start: 06-27-2024 End: 06-27-2025 Thyroxine (T4) free [Mass/volume] in Serum or Plasma T4, free Lab Routine Dizziness and giddiness Expected: 06/27/2024 (Approximate), Expires: 06/27/2025 [facility] Comment on above: Expected: 06/27/2024 (Approximate), Expires: 06/27/2025 Start: 06-27-2024 End: 06-27-2025 Urinalysis complete panel - Urine Urinalysis with reflex microscopic (clean catch) Lab Routine History of prolactinoma Expected: 06/27/2024 (Approximate), Expires: 06/27/2025 [facility] Comment on above: Expected: 06/27/2024 (Approximate), Expires: 06/27/2025 Start: 05-08-2024 Influenza vaccination Influenza Vacc ine (#1) [facility] Start: 2021 Screening for malign ant neoplasm of breast Mammogram [facility] Start: 2011 Screening for malign ant neoplasm of cervix HPV/Cotest [facility] Immunizations Immunization Date Immunization Notes Care Provider Juan resendiz 01-10-2021 COVID-19 mRNA,[id number] b2 (Pfizer) Karly Mills Work Phone: [facility] Payers Date Payer Category Payer Private Health Insurance [id number] 2023 Self-pay [id number] 2023 Unknown [id number] 2.16.8 [id number] 1981 Unknown [id number] 2.16.84 [id number] 1981 Unknown [id number] 2.16.8 [id number] 1981 Unknown [id number] 2.16.84 [id number] 1981 Unknown [id number] 2.16.84 [id number] 1981 Unknown [id number] 2.16.84 [id number] 1981 Unknown [id number] 2.16.84 [id number] 1981 Unknown [id number] 2.16.84 [id number] 1981 Unknown [id number] 2.16.84 [id number] 1959 Unknown [id number] Unknown [id number] Unknown [id number] Unknown [id number] 2.16.8 [id number] Social History Date Type Detail Facility [facility] Unknown if ever smoked [facility] Start: 1980 Sex Assigned At Female F [facility] Start: 11-09-2023 End: 07-26-2024 Sex Assigned At [facility] Tobacco smoking status No Smokin g Status Entered [facility] Start: 11-09-2023 End: 11-25-2023 Tobacco smoking status NHIS Never smoked tobacco (finding) [facility] Start: 11-09-2023 Tobacco use and exposure Smokeless tobacco non-user [facility] Start: 11-09-2023 End: 10-04-2024 Alcoholic beverage intake Current drinker of alcohol [...] to any clubs or organizations such as synagogue groups, unions, fraternal or athletic groups, or [...] to buy more. Never true [facility] Start: 10-04-2024 Alcohol Comment Might have a g lass of wine every other week or so. [facility] NEGATED: Highlighted rowStart: SUYAPAF History of tobacco use Passive smoker [facility] Clinical Notes 08-15-2021 to 10-04-2024 Eulalia Rodney, - 10/04/2024 5:00 PM Rafael Mccauley, [employer] - 07/27/2024 6:02 PM Rafael Mccauley, [employer]IN[employer]ER - 07/27/2024 6:01 PM Rafael Mccauley, [employer]IN[employer]ER - 07/27/2024 6:00 PM ESTPatient Instructions Note Date & Type Note Facility 10-04-2024 History of Present illness Narrative Images from the original note were not included. No chief complaint on file. Subjective Norma Alatorre, 44 y.o., female being seen in neurology consultation HPI SELF REFERRAL: Migraines, dizziness, MRI @ [facility] , PCP Frances Mccauley CNP The patient has had migraines as far back as she can remember. She had them in childhood and teenage years. She has been getting migraines about 2 days a month for the headache but has some other symptoms to go along with them. Before she was taking magnesium she was having 4-6 migraines a month. She has pain all over her head but the pain is more intense on the right side of her head and behind her right eye. She states that her head will pound. She has photophobia and phonophobia. She admits to nausea and vomiting. She does have auras and flashing lights. She is not sure what medication she has had in the past for migraine. She has been getting dizziness for the past 3 months with or without a headache and feels like she is going to pass out. She has not passed out. She denies any warnings that this is going to come on. She denies spinning. She will feel flushed, hot flash, some SOB, heart racing, denies chest pain or heaviness, lasting about 10 minutes. She has to stop what she is doing and sit until it resolves. She feels a little fatigued after but states for the most part she feels ok. This is happening twice a week. She has not had any of the above symptoms with the migraines in the past. She will have these spells about twice a week. They will occur at all different times. She has not identified any triggers. It has happened at work when she was active or when shew sitting down watching TV. Nothing makes them better. She takes Magnesium daily. She will take a tylenol and excedrin migraine when she has a migriane. She thinks she triptan in the past and it did help with the migraines but it made her sleepy. She goes to bed around 8:30 and she gest up around 4:45 -5. She does not feel rested in the morning. She does not feel like her sleep is good at night but it is better than it was. She is not drinking much water but she forces herself to drink some maybe around 36 ounces. Past Medical History: Diagnosis Date Adenomyosis Anxiety Early Gallbladder disease 2007 H/O wisdom tooth extraction History of cholecystectomy Menorrhagia Migraine (CMS/HCC) Pelvic pain Past Surgical History: Procedure Laterality Date CHOLECYSTECTOMY 09/2008 FOOT SURGERY Right LAPAROSCOPIC HYSTERECTOMY 09/2009 Heavy bleeding LAPAROSCOPIC HYSTERECTOMY 2007 [facility] ; Disease: adenomyosis , pelvic pain, menorrhagia Family History Problem Relation Name Age of Onset COPD Mother Aria Cheek Depression Mother Aria Cheek Anxiety disorder Mother Aria Cheek Migraines Mother Aria Cheek Neuropathy Mother Aria Cheek No Known Problems Daughter Lung cancer Maternal Grandfather Colon cancer Other Aunt ADD / ADHD Brother Abelardo Pinon ADD / ADHD Brother Miguelangel Cheek Social History Tobacco Use Smoking status: Never Passive exposure: Never Smokeless tobacco: Never Substance Use Topics Alcohol use: Yes Alcohol/week: 1.0 standard drink of alcohol Types: 1 Glasses of wine per week Comment: Might have a glass of wine every other week or so. Allergies: Morphine, Wound dressing adhesive, and Penicillins General: No fever or chills HEENT: No nasal congestion or runny nose Pulmonary: No shortness of breath or cough Cardiovascular: No chest pain or palpitations GI: No nausea or vomiting : No dysuria or hematuria Musculoskeletal: No new aches or pains or muscle weakness Infectious: no recurrent fevers or infections Dermatologic: No rashes or skin lesions Neurologic: No new headaches or dizziness Vitals: 10/04/24 1708 BP: 124/80 Pulse: 72 SpO2: 98% Body mass index is 24.58 kg/m . weight: 143 lb 3.2 oz Neurologic exam: General: Normal body habitus, cooperative, pleasant Mental status: Awake, alert to person, place and time. Recent and remote memory are intact. Attention and concentration are normal. Fund of knowledge is appropriate for level of education. HEENT: NC/AT Cranial nerves: CN II: Visual manuel full to confrontation. No loss of vision CN III, IV, : pupils equal round and reactive to light. Extraocular movements intact. No ptosis present. CN V: Facial sensation is normal. CN VII: Full and symmetric facial movement. CN VIII: Hearing is normal CN IX and X: Palate elevates symmetrically. CN XI: Shoulder shrug is normal bilaterally. CN XII: Tongue is midline without atrophy or fasciculation. Speech: Clear and fluent no aphasia or dysarthria Pronator drift: Negative bilateral upper extremity Coordination: Intact, no signs of dysmetria Good finger to nose and rapid alternating movements Sensory: Sensation is intact to light, temperature and vibratory touch throughout four extremities. Pinprick intact in all four extremities. Motor: LUE 5/5 RUE 5/5 LLE 5/5 RLE 5/5 Tone: Physiologic, no tremor, bradykinesia or rigidity DTR: Bilateral Biceps 2/4 Bilateral BR 2/4 Bilateral Patellar 2/4 No spasticity Gait: Normal to casual gait Romberg's Negative Review and summary of old records: Assessment/Plan Diagnoses and all orders for this visit: Migraine without aura and without status migrainosus, not intractable (CMS/HCC) - Ambulatory referral to Neurology - amitriptyline (Elavil) 25 MG tablet; Take 1 tablet (25 mg) by mouth Daily - Ubrogepant (Ubrelvy) 100 MG tablet; Take 1 tablet by mouth if needed (May repeat in 2 hours. Max of 2 tablets in 24 hours.) Hypotension, unspecified hypotension type Migraine variant (CMS/HCC) Pituitary adenoma (CMS/HCC) - MR BRAIN PITUITARY W & WO CONTRAST; Future - Follicle stimulating hormone; Future - Luteinizing hormone; Future - Prolactin; Future Galactorrhea - Follicle stimulating hormone; Future - Luteinizing hormone; Future - Prolactin; Future 44-year-old female who is having headaches that appear to be more of migraine type of headaches with potentially some tension type headaches mixed in. These have been doing a little bit better she has she started on magnesium. Events they are little atypical a feeling lightheaded heart racing short of breath overall not feeling well and then fatigued. Etiologies of these are unclear. She does get somewhat of an aura that is visual with her migraines however she never had these other symptoms with the migraine therefore I am not entirely convinced that this is a migraine variant or acephalic migraine. I can not entirely rule that out so we will go ahead and treat her migraines and see if these episodes diminished. This also could be related to episodes of hypotension as she admits she does not drink as much water as she should. She also has some poor sleep at night and does not feel rested in the morning and that certainly could be contributing also. I would like to start her on some medicines see if we get her sleep and headaches better see what the spells do she needs to be drinking half of her body weight in oz of water per day and potentially add in salt and take her blood pressure if she is starting to feel faint. A tilt-table test or orthostatic blood pressures however she is not having the symptoms at this time. Patient did end up having an MRI of the brain. This did show a nodular tissue in the suprasellar cistern at 1.1 cm that could be not differentiated from the infundibulum, pituitary gland, tuber cinereum, optic chiasm, and or cisternal optic nerves. Differentiation included infiltrated etiologies ( LC AH, lymphocytic hypophysitis, IgG 4 related hypophysitis) and neoplasia ( pituitary adenoma, optic pathway or hypothalamic glioma etc.) correlating with endocrine testing and potentially a pituitary protocol MRI was recommended. Patient states that she did have a workup and history of a pituitary adenoma and did have galactorrhea at 1 point in time however now she just has some secretion when her breasts are pushing him very hard. Due to this reason we will go ahead and do the pituitary protocol MRI and get a prolactin level along with an LH and FSH hormones for further analysis. We can consider sending her to the lan analyst. Plan Trial of amitriptyline 25 mg half to 1 at bedtime for her sleep and her headaches Trial of Ubrelvy abortive as she has failed Triptan and see if this will help for abortive use MRI of the pituitary with thin cuts Lab work including prolactin level LH and FSH The patient was counseled on proper sleep hygiene and adequate hours of sleep. Can consider a sleep study pending her course Monitor the spells in the headaches Take the blood pressure if she is having an event to see if it is low Consider orthostatic blood pressures and or tilt-table test The diagnosis was all discussed with the patient. All questions were answered and they agreed with the treatment plan. Patient will call if there are any new issues or questions. Pt has been fully educated on their diagnosis, treatment options, follow up plan, and return instructions Return to clinic: 6-8 weeks documented in this encounter [facility] 07-27-2024 History of Present illness Narrative Associated Problem(s): Dizziness and giddiness Labs normal Will start with neurology referral and go from there Associated Problem(s): History of prolactinoma Normal prolactin level MRI brain report quite confusion, will attempt to contact [facility] to discuss with them the results, [...] follow up, sees dr mirian Morales in [place], referred by DIRECTOR SOCIAL SERVICE, possibly dating back to 2017. Denies any [...] HYSTERECTOMY 09/2009 Heavy bleeding LAPAROSCOPIC HYSTERECTOMY 2007 [facility] ; Disease: adenomyosis , pelvic pain, menorrhagia [...] report quite confusion, will attempt to contact [facility] Radiologist to discuss with them the results, possible comparison to prior one Refer to Neuro Relevant Orders Ambulatory referral to Neurology documented in this encounter [facility] 07-27-2024 Instructions Karen Mccauley NP - 07/27/2024 3:40 PM EST Referral to [facility] Neurology in [place] (previous [facility]) documented in this encounter [facility] 06-27-2024 History of Present illness Narrative Associated [...] out the day. Pt went to the [facility] where they did her bp and had [...] felt warm, 2 sharp pains to right sikhism area, then got shaky feeling No NT [...] follow up, sees dr mirian Morales in [place], referred by DIRECTOR SOCIAL SERVICE, possibly dating back to 2017. Denies any hx of double vision, blurry vision Family hx: migraines, no strokes, daughter has neurocardiogenic syncope, no brain anurysms, no MS. Stress levels; feels good, hx of depression/anxiety/panic attack, off meds since 2015 no issues Caffeine: coffee in the morning, [...] HYSTERECTOMY 09/2009 Heavy bleeding LAPAROSCOPIC HYSTERECTOMY 2007 [facility] ; Disease: adenomyosis , pelvic pain, menorrhagia [...] microscopic (clean catch) documented in this encounter [facility] 11-12-2023 Evaluation + Plan note [facility]23 [facility] 04-02-2023 Evaluation note Encounter Date Diagnosis Assessment [...] activity as tolerated. Continue Tylenol or ibuprofen. [employer] [facility] [employer] Other 12-09-2021 Evaluation note* Encounter Date Diagnosis [...] Patient care instructions given in writting by [facility] Care At Home document [employer] Other Evaluation noteNo assessment information available [facility] noteNo InformationNortHahn[facility] [employer] Other Evaluation note* Diagnosis Dizziness and giddiness- Primary Migraine without aura and without status migrainosus, not intractable (CMS/HCC) History of prolactinoma documented in this encounter [facility] HealthcareEvaluation note* Diagnosis Dizziness and giddiness- Primary Migraine without aura and without status migrainosus, not intractable (CMS/HCC) History of prolactinoma Dizziness and giddiness- Primary Migraine without aura and without status migrainosus, not intractable (CMS/HCC) History of prolactinoma documented in this encounter [facility] HealthcareEvaluation note* Diagnosis Dizziness and giddiness- Primary Migraine without aura and without status migrainosus, not intractable (CMS/HCC) History of prolactinoma Dizziness and giddiness- Primary Migraine without aura and without status migrainosus, not intractable (CMS/HCC) History of prolactinoma Migraine without aura and without status migrainosus, not intractable (CMS/HCC)- Primary Hypotension, unspecified hypotension type Migraine variant (CMS/HCC) Variants of migraine, not elsewhere classified, without mention of intractable migraine without mention of status migrainosus Pituitary adenoma (CMS/HCC) Benign neoplasm of pituitary gland and craniopharyngeal duct (pouch) Galactorrhea Galactorrhea not associated with childbirth documented in this encounter [facility] HealthcareHistory general Narrative - Reported* Type Description Date Medical History Acid reflux Surgical History Foot surgery [facility] [place] 2000 Surgical History Childbirth [facility] [place] 2003 Surgical History Childbirth [facility] 2006 Surgical History cholecystectomy [facility] 2007 Surgical History partial hysterectomy [facility] 2009 Hospitalization History see above [employer] Other Hospital course Narrative No data available for this section [facility] No data available for this section [facility] No data available for this section [facility] Narrative* Consultation (Routine) - Closed Specialty Diagnoses / Procedures Referred By Contac t Referred To Contact Neurology Diagnoses Migraine without aura and without status migrainosus, not intractable (CMS/HCC) History of prolactinoma Dizziness and giddiness Procedures MD OFFICE/OUTPATIENT NEW HIGH MDM Karen Mccauley, P[employer] AND [employer]INTS RESTORER [address] [place] [address] Phone: tel: fax: Guy Salas DO [address] [place] [id number] Phone: tel: fax: Referral ID Status Reason Start Date Expiration Date V isits Requested Visits Authorized [id number] Closed Consult and Treat 07/27/2024 01/23/2025 1 1 [facility] Summary Purpose Family History No Family History [...] and content) DATE CREATED AUTHOR 10/16/2020 [facility] DATE CREATED AUTHOR AUTHOR'S ORGANIZ ATION 04/10/2023 [facility] DATE CREATED AUTHOR AUTHOR'S ORGANIZ ATION 11/15/2023 [facility] DATE CREATED AUTHOR AUTHOR'S ORGANIZ ATION 10/22/2024 [facility] EPIC Goals (unrecognized section and [...] Member Role Status Dates Danae Burgess APRN P[employer]IN[employer]ER-C Primary Care Provider Active Team Status: Inactive Member Role Status Dates Danae Burgess APRN [employer]IN[employer]ER-C Primary Care Provider Active Rosanna Santoyo APRN Attending Provider Active Team Status: Active Member Role Status Dates 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 NO FAMILY Primary Care Provider Active Team Status: Inactive Member Role Status Dates PHYSICIAN NO FAMILY Primary Care Provider Active Start: November 25, 2023 End: November 25, 2023 Gaye Love NP-Paige Attending Provider Active S tart: November 25, 2023 End: November 25, 2023 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 Relationship Specialty Start Date End Date Karen Mccauley NP [address] [place] [id number] PCP - General 11/04/23 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 Relationship Specialty Start Date End Date Karen Mccauley NP [address] [place] [id number] PCP - General 11/04/23 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 Relationship Specialty Start Date End Date Karen Mccauley NP [address] [place] [id number] PCP - General 11/04/23 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 [facility] [employer] [facility]. provides no warranty or guarantee of the accuracy or completeness of information in this document.
[2024-10-27 04:07] LABS: FSH 5.8 mIU/mL (.); Luteinizing Hormone(LH) 12.7 mIU/mL (.); Prolactin 19.6 ng/mL (4.8-33.4)
== END 2024-10-25 15:25 | disposition home or self-care (01) ==
LOC: LAB 15:25
PROVIDERS: PCP Nurse Practitioner; Visit Provider Psychiatry & Neurology Neurology
DX: D35.2 Benign neoplasm of pituitary gland (principal); N64.3 Galactorrhea not associated with childbirth
CPT/HCPCS: 36415; 83001; 83002; 84146

== ENCOUNTER 2024-11-28 15:00 | Outpatient (OUT) | payer OTHER, SELFPAY | END 2024-11-28 15:01 | disposition home or self-care (01) | LOC: CARD 15:00 | PROVIDERS: PCP Nurse Practitioner; Visit Provider Nurse Practitioner | DX: R42 Dizziness and giddiness (principal); R00.2 Palpitations | CPT/HCPCS: 93242 ==

== ENCOUNTER 2025-01-04 15:20 | Emergency (ER) | payer OTHER, SELFPAY ==
[2025-01-04 15:37] VITALS: BP 145/95; PULSE 66; TEMP 36.9; O2SAT 97; BMI 23.7
--- NOTE | 2025-01-04 15:58 | ECG_ITS ---
[facility] Test Date: 2025-01-04 Pat Name: LIANE DIAZ Department: Room: - Gender: Female [employer] Administrator: : 1980 Requested By: [id number] Order Number: [id number] Reading MD: JESSICA RASCON M.D. Measurements Intervals [place] Rate: 59 P: 58 UT: 134 QRS: 45 QRSD: 80 T: 30 QT: 380 QTc: 380 Interpretive Statements 1100 Sinus rhythm 3114 Cannot rule out anterior myocardial infarction, age undetermined 9150 abnormal ECG No previous ECG available for comparison Electronically Signed On 01-04-2025 21:12:12 EDT by JESSICA RASCON M.D.
[2025-01-04 16:04] LABS: Basophils Absolute Auto 0.1 10^3/uL (0.0-0.1); Basophils Percent Auto 0.8 % (0.2-2.0); Eosinophils Absolute Auto 0.2 10^3/uL (0.0-0.7); Hematocrit 43.6 % (36.0-48.0); Hemoglobin 15.1 g/dL (12.0-16.0); Immature Granulocytes Abs Auto 0.01 10^3/uL (0.00-0.03); Immature Granulocytes Pct Auto 0.1 % (0.0-0.5); Lymphocytes Absolute Auto 3.4 10^3/uL (1.2-3.8); Lymphocytes Percent Auto 39.4 % (20.5-60.0); Mean Corpuscular HGB Conc 34.6 g/dL (29.9-35.2); Mean Corpuscular Hemoglobin 31.9 pg (26.7-34.0); Mean Corpuscular Volume 92.2 fL (81.0-99.0); Mean Platelet Volume 9.9 fL (9.5-13.5); Monocytes Absolute Auto 0.4 10^3/uL (0.3-0.8); Monocytes Percent Auto 4.4 % (1.7-12.0); Neutrophils Absolute Auto 4.5 10^3/uL (1.4-6.5); Neutrophils Percent Auto 53.3 % (43.0-75.0); Platelet Count 371 10^3/uL (150-450); Red Blood Count 4.73 10^6/uL (4.20-5.40); Red Cell Distribution Width 12.4 % (11.0-15.0); White Blood Count 8.5 10^3/uL (4.0-11.0)
[2025-01-04] MEDS: KETOROLAC TROMETHAMINE 30 MG/ML VIAL 15 MG IVP (16:08)
--- NOTE | 2025-01-04 16:12 | ED.CHESTPAI1 ---
HPI - Chest Pain General Chief Complaint: Chest Pain Stated Complaint: Chest pain Time Seen by Provider: 01/04/25 15:23 Mode of arrival: walk-in History of Present Illness HPI narrative: Patient presents to ED complaining of chest pain. She said it started on and it started as back pain between the shoulder blades and across the back. She said then it started radiating to the front and it feels like a pain deeper and under the sternal area. Patient states she has had a mild cough but it did not start as an upper respiratory infection. No fevers. She denies shortness of breath. She is currently being worked up for syncopal episodes which are near syncopal not full syncope. She has had an EKG recently and is scheduled for an echo soon. Her daughter has a history of neurocardiogenic syncope. Patient denies high blood pressure diabetes or smoking. No previous other cardiac history. Denies any leg swelling or pain. Patient does have pain with deep breathing. She is not hypoxic not tachycardic she denies abdominal pain. She is alert and oriented resting comfortably in the bed Related Data Home Medications ?Medication ?Instructions ?Recorded ?Confirmed tizanidine 4 mg tablet 4 mg PO DAILY 01/04/25 01/04/25 ubrogepant 100 mg tablet (Ubrelvy) 100 mg PO DAILY 01/04/25 01/04/25 Allergies Allergy/AdvReac Type Severity Reaction Status Date / Time Penicillins Allergy Severe Unknown Verified 01/04/25 15:36 morphine AdvReac Severe Hives Verified 01/04/25 15:36 Review of Systems ROS Status of ROS 10 or more systems reviewed and unremarkable except as noted in history and below PFSH PFS Social History Little interest or pleasure in doing things: not at all Feeling down, depressed, or hopeless: not at all Exam Narrative Exam Narrative: Time Seen: [] Vital Signs: [Per nurse's notes.] General: [Alert] Skin: [Warm, dry, no rash.] Head: [Normocephalic, atraumatic.] Neck: [Supple, trachea midline.] Eye: [Pupils are equal, round and reactive to light, extraocular movements are intact, normal conjunctiva.] Ears, nose, mouth and throat: oral mucosa moist. Cardiovascular: [Regular rate and rhythm, no murmur.] Respiratory: [Lungs are clear to auscultation, respirations are non-labored, breath sounds are equal.] Chest wall: [No tenderness, no deformity.] Gastrointestinal: [Soft, nontender, non distended, normal bowel sounds.] MSK: 5 out of 5 muscle strength x 4 extremities no calf pain or edema Psychiatric: [Cooperative, appropriate mood & affect.] Neurological: [Alert and oriented to person, place, time, and situation, no focal neurological deficit observed.] Constitutional Vital Signs, click to edit/add: Last Vital Signs Temp 98.5 F 01/04/25 15:37 Pulse 66 01/04/25 15:37 Resp 18 01/04/25 15:37 BP 145/95 H 01/04/25 15:37 Pulse Ox 97 01/04/25 15:37 O2 Del Method Room Air 01/04/25 15:37 Course Vital Signs Vital signs: Vital Signs Temperature 98.5 F 01/04/25 15:37 Pulse Rate 66 01/04/25 15:37 Respiratory Rate 18 01/04/25 15:37 Blood Pressure 145/95 H 01/04/25 15:37 Pulse Oximetry 97 01/04/25 15:37 Oxygen Delivery Method Room Air 01/04/25 15:37 Temperature 98.5 F 01/04/25 15:37 Pulse Rate 66 01/04/25 15:37 Respiratory Rate 18 01/04/25 15:37 Blood Pressure 145/95 H 01/04/25 15:37 Pulse Oximetry 97 01/04/25 15:37 Oxygen Delivery Method Room Air 01/04/25 15:37 MDM - Chest Pain Differential Diagnosis Differential diagnosis: Likely pneumothorax, stable angina, unstable angina pectoris, atypical chest pain, st elevation myocardial infarction, costochondritis and chest pain Lab Data Labs: Lab Results 01/04/25 Range/Units 15:54 WBC 8.5 (4.0-11.0) 10^3/uL RBC 4.73 (4.20-5.40) 10^6/uL Hgb 15.1 (12.0-16.0) g/dL Hct 43.6 (36.0-48.0) % MCV 92.2 (81.0-99.0) fL MCH 31.9 (26.7-34.0) pg MCHC 34.6 (29.9-35.2) g/dL RDW 12.4 (11.0-15.0) % Plt Count 371 (150-450) 10^3/uL MPV 9.9 (9.5-13.5) fL Neut % (Auto) 53.3 (43.0-75.0) % Lymph % (Auto) 39.4 (20.5-60.0) % [place] % (Auto) 4.4 (1.7-12.0) % Eos % (Auto) 2.0 (0.9-7.0) % Baso % (Auto) 0.8 (0.2-2.0) % Neut # (Auto) 4.5 (1.4-6.5) 10^3/uL Lymph # (Auto) 3.4 (1.2-3.8) 10^3/uL [place] # (Auto) 0.4 (0.3-0.8) 10^3/uL Eos # (Auto) 0.2 (0.0-0.7) 10^3/uL Baso # (Auto) 0.1 (0.0-0.1) 10^3/uL Abs Immat Gran (auto) 0.01 (0.00-0.03) 10^3/uL Imm/Tot Granulo (auto) 0.1 (0.0-0.5) % ECG Data Attestation: I personally reviewed and interpreted this ECG as follows: Interpretation: EKG INTERPRETATION Time: [] 1550 Rate: [] 59 Rhythm: _ [] Normal sinus rhythm ST segments: _ [] No acute ST elevation or depression T waves: _ [] Ectopy: _ [] P wave/AR interval: _ [] QRS interval: _ [] QT interval: _ [] Comparison: _ [] Comparison EKG date: [] Performed by: [self] Discharge Plan Discharge Chief Complaint: Chest Pain Prescriptions / Home Meds: No Action Ubrelvy 100 mg tablet 100 mg PO DAILY tizanidine 4 mg tablet 4 mg PO DAILY Print Language: Citizen [place] Referrals: Karen Mccauley NP [Primary Care Provider, [facility]] - 1 week
[2025-01-04 16:18] LABS: Bilirubin Urine NEGATIVE (NEGATIVE); Blood Urine NEGATIVE (NEGATIVE); Clarity Urine CLEAR (CLEAR); Color Urine LT. YELLOW (YELLOW); Glucose Urine UA NEGATIVE (NEGATIVE); Ketones Urine NEGATIVE (NEGATIVE); Leukocyte Esterase Urine NEGATIVE (NEGATIVE); Nitrite Urine NEGATIVE (NEGATIVE); Protein Urine NEGATIVE (NEG/TRACE); Specific Gravity Urine <=1.005 (1.005-1.025); Urobilinogen Urine 0.2 EU/dL (0.2-1.0)
[2025-01-04 16:18] LABS: D Dimer 0.19 mg/L FEU (<=0.59)
[2025-01-04 16:22] LABS: Urine Microscopic Indicated NO
[2025-01-04 16:24] LABS: Alanine Aminotransferase 39 U/L (14-59); Albumin Globulin Ratio 1.2; Alkaline Phosphatase 66 U/L (46-116); Anion Gap 14.7; Aspartate Amino Transferase 67 U/L (15-37); BUN Creatinine Ratio 14.5; Bilirubin Total 0.7 mg/dL (0.2-1.0); Calcium 8.8 mg/dL (8.5-10.1); Carbon Dioxide 25.9 mmol/L (21.0-32.0); Chloride 103 mmol/L (98-107); Estimated GFR (African America >60 (>=60 mL/min/1.73m^2); Estimated GFR (Non-African Ame >60 (>=60 mL/min/1.73m^2); Globulin 3.3 g/dL; Glucose 83 mg/dL (74-106); Potassium 3.6 mmol/L (3.5-5.1); Sodium 140 mmol/L (136-145); Total Protein 7.3 g/dL (6.4-8.2); Troponin I High Sensitivity <4.0 pg/mL (4.0-51.3)
[2025-01-04 17:01] VITALS: BP 122/88; PULSE 64; O2SAT 100
== END 2025-01-04 17:04 | disposition home or self-care (01) ==
PROVIDERS: Emergency Provider Emergency Medicine; PCP Nurse Practitioner
DX: R07.9 Chest pain, unspecified (principal)
CPT/HCPCS: 36415; 71046; 80053; 81003; 84484; 85025; 85378; 93005; 96374; 99285; J1885

== ENCOUNTER 2025-01-31 07:58 | Outpatient (OUT) | payer OTHER, SELFPAY ==
--- OUTSIDE RECORDS SUMMARY | 2025-01-25 15:00 | XMS_ITS ---
Author Name Auto Generated Organization OHIP Support Name Relationship Address Phone EMILY DENYS Next of Kin [address] [place] [address] + HARRISON BEAVER Next of Kin [address] [place] [address] + DENYS DIAZ Next of Kin Unknown [phone] HARRISON BEAVER Next of Kin Unknown [phone] DENYS DIAZ Next of Kin Unknown [phone] HARRISON BEAVER Next of Kin Unknown [phone] DENYS DIAZ Next of Kin [address] [place] [address] + HARRISON BEAVER Next of Kin [address] [place] [address] + DENYS DIAZ Next of Kin [address] [place] [address] + HARRISON BEAVER Next of Kin [address] [place] [address] + DENYS DIAZ Next of Kin [address] [place] [address] + HARRISON BEAVER Next of Kin [address] [place] [address] + DENYS DIAZ Next of Kin [address] [place] [address] + HARRISON BEAVER Next of Kin [address] [place] [address] + DENYS DIAZ Next of Kin [address] [place] [address] + SDJANAHY Next of Kin [address] [facility] [address] + EMILYMEID Next of Kin [address] [place] [address] + SDJANAHY Next of Kin [address] [place] [address] + EMILYMEID Next of Kin [address] [place] [address] + SDJANAHY Next of Kin [address] [place] [address] + EMILY DENYS Next of Kin [address] [place] [address] + SDJANAHY Next of Kin [address] [place] [address] + EMILY DENYS Next of Kin [address] [place] [address] + SDJANAHY Next of Kin [address] [place] [address] + Care Team Providers Care Computer Networking Instructor Name Role Phone EULALIA RODNEY Attending Unavailable AICHHOLZ, CATHLEEN Referring Unavailable RONELEULALIA AMEZQUITA Referring Unavailable AICHHOLZ, CATHLEEN Attending Unavailable AICHHOLZ, CATHLEEN Referring Unavailable AICHHOLZ, CATHLEEN Attending Unavailable AICHHOLZ, CATHLEEN Attending Unavailable DAISY ARAUZ Attending Unavailable RONELEULALIA AMEZQUITA Attending Unavailable AICHHOLZ, CATHLEEN Attending Unavailable AICHHOLZ, CATHLEEN Attending Unavailable ELA TURNER Attending Unavailable ELA TURNER Referring Unavailable PROBLEMS DATE TYPE CONDITION / CODE ATTENDING STATUS [facility] 12/31/2024 Admitting Diagnosis Syncope and collapse / R55(ICD-10) NA Active [facility] 12/30/2024 Admitting Diagnosis Precordial pain / R07.2(ICD-10) ELA TURNER Active [facility] PROCEDURES No Procedure Records Found RESULTS OFFICE VISIT Observed: 12/30/2024 11:40 AM Status: COMPLETED Source: [facility] [id number] Norma Diaz 0 1980 F Date Provider Department Center 12/30/2024 [id number] TURNER CARD [facility] Family History Problem Relation Age of Onset No Known Problems Mother No Known Problems Father Heart attack Maternal Grandfather Family Status - Relation Status Age at Mother Father Maternal Grandfather Level of Service:35045 [place] OFFICE/OUTPATIENT NEW MODERATE MDM 45 MINUTES Reason for Visit and Comments: Syncope [506] - The past few months she's felt near-syncope at times. Hasn't actually had syncopal episode. Palpitations [026801] - Wore Holter monitor last month. Dizziness [166557] - Fells unwell Chest Pain [556431] - Had some recent sharp chest pains. PROGRESS Observed: 12/30/2024 11:40 AM Status: COMPLETED Source: [facility] Office Cardiology Clinic Note Reason for cardiology consult: Near syncope Chief Complaint: Dizziness, palpitations HPI: Norma Diaz is a 44 y.o. female without prior cardiac history. She has history of migraine, pituitary adenoma, and sleep disturbance She reports that symptoms started several months ago, it started with suddenly feeling hot and sweaty all over and after that it progressed to start to have fainting feeling with the above symptoms usually in standing or sitting position never with lying down, not necessarily while she is doing any thing, it can occur at different times in the day, she usually stops and sits down or lies down when she has those symptoms. She describes the dizziness by feeling fainting as if she is fading out, in most intense episode she felt that things are darkening around her and sat down on the floor, she never totally passed out. She works on [employer] and usually her workplace is hot. She checked her blood pressure couple minutes after sitting down in couple events and it was in the 130-140 over 80s. Her blood pressure is usually in the 116-120/80. Episodes occurs at least twice a week. Most recently she has been occasionally not in every episode having sharp intermittent chest pain with those symptoms She reports 1 nearsyncopal episode when she was in sixth grade but not since. She had COVID infection 4 times first 1 was prolonged with very bad symptoms and in the others she had extreme fatigue with super bad cold symptoms. She received only 1 set of the vaccine which gave her bad reaction similar to COVID infection. Last time she had COVID was 2 years ago The patient is very active and she denies any exercise-induced chest pain or shortness of breath. She denies orthopnea or paroxysmal nocturnal dyspnea or palpitations or legs edema or discomfort on exertion She is premenopausal. She had history of hysterectomy due to vaginal bleeding but she still has her ovaries She drinks a cup of coffee in a in the weekend only. She drinks occasionally 1 Monster all day when she mixes it with the water. She drinks a lot of water up to 1 gallon a day. She denies any alcohol or illicit drugs She has a daughter with history of neurocardiogenic syncope started when she was 15-year-old Cardiology ROS: GENERAL: Denies fever, chills, night sweats, weight loss. HEENT: Denies changes in vision, photophobia, changes in hearing, epistaxis, oral bleeding. CARDIOVASCULAR: Denies exertional chest pain, exertional dyspnea, orthopnea/PND, lower extremity edema, palpitations, she reports lightheadedness/dizziness as described above associated with sharp chest pain in some occasions. RESPIRATORY: Denies SOB, coughing, wheezing GI: Denies abdominal pain, nausea/vomiting, heartburn, melena/hematochezia. RENAL: Denies dysuria, hematuria, flank pain. MSK: Denies muscle weakness/pain, arthralgias/joint pain. NEUROLOGIC: Denies LOC, weakness, numbness, headaches. SKIN: Denies abnormal rashes or bleeding. PSYCH: Denies significant anxiety, depression, sleep disturbances. Past Medical History She has a past medical history of Migraine, Pituitary adenoma (CMS/HCC), and Sleep disturbance. Surgical History She has a past surgical history that includes Cholecystectomy; Foot surgery; and Hysterectomy. Social History She reports that she has never smoked. She has never used smokeless tobacco. She reports that she does not currently use alcohol. No history on file for drug use. Family History Family History Problem Relation Name Age of Onset No Known Problems Mother No Known Problems Father Heart attack Maternal Grandfather Allergies Morphine and Penicillins Medications Current Outpatient Medications: tiZANidine (Zanaflex) 4 mg tablet, Take 2-4 mg by mouth at bedtime., Disp: , Rfl: Ubrelvy 100 mg tablet, TAKE 1 TABLET BY MOUTH IF NEEDED (MAY REPEAT IN 2 HOURS. MAX OF 2 TABLETS IN 24 HOURS.), Disp: , Rfl: Last Recorded Vitals Visit Vitals BP 120/80 (BP Location: Left arm, Patient Position: Sitting) Pulse 76 Ht 1.626 m (5' 4 ) Wt 62.6 kg (138 lb) SpO2 97% BMI 23.69 kg/m??? Smoking Status Never BSA 1.68 m??? Physical Examination: GENERAL: alert and oriented x3, well developed, in no acute distress. HEAD: atraumatic, normocephalic. EYES: AMADOU, EOMI. NECK: trachea midline, no JVD present, no carotid bruits present. CARDIAC: S1, S2 present. RRR. No murmur, rubs, or gallops. RESPIRATORY: CTAB, no increased effort of breathing, no rales, rhonchi, or wheezing. ABDOMEN: soft, nontender, nondistended. EXTREMITIES: no lower extremity edema, peripheral pulses are 2+ bilaterally. No rash/skin discoloration present. NEURO: strength/sensation equal and symmetric in bilateral upper and lower extremities. PSYCH: appropriate mood, affect, and judgement. Labs: 06/28/2024 White blood count 7, hemoglobin 13.9, hematocrit 42, platelets 380 Sodium 139, potassium 3.8, BUN 18, creatinine 0.93, GFR above 60, glucose 82, calcium 8.7 Magnesium 2 Total bilirubin 0.3, AST 24, ALT 31, alk phos 71, albumin 3.9, TSH 2.569, free T40.96 Prolactin 10.5 normal Last Images: EKG today 12/30/2024 showed normal sinus rhythm with sinus arrhythmia, heart rate 62 bpm, possible left atrial enlargement, otherwise normal EKG 7-day event monitor I reviewed patient triggered events, most of them she was in sinus rhythm and mild sinus tachycardia with the highest heart rate 110 bpm, and 2 events she had short runs of SVT 4 and 5 beats, in 2 of she had isolated PVCs Assessment and Plan: Presyncope, most likely represents orthostatic hypotension-neurocardiogenic syncope Chest pain in association with above symptom Paroxysmal SVT, short runs noted on event monitor Pre menopause which could be contributing to above symptoms Migraine headache History of hysterectomy but she still has her ovaries Plan: Patient was advised to continue with avoiding caffeine and alcohol and to continue with increasing her fluid intake and also to add salt to her diet She was advised to wear compression stocking and given a prescription for compression stockings knee-high moderate pressure 20 to 30 mmHg to wear during the daytime particularly at work She was advised to continue with her current behavior of sitting down and lying down immediately when she feels dizzy I will schedule her for tilt table test I will obtain an echocardiographic study to evaluate for underlying structural heart disease such as dilated cardiomyopathy or hypertrophic cardiomyopathy Follow-up with me in about 2 months or sooner if needed Ela Turner MD,[facility] MR PITUITARY W AND WO IV CONTRAST Observed: 10/17/2024 1:02 PM Status: F Source: [facility] EPIC Order Comment: Thin cuts thr ough the pituitary MR PITUITARY W AND WO IV CON TRAST INDICATION: Follow up pituitary adenoma, worsening headaches [...] signed and approved by the interpreting Radiologist. MR BRAIN W AND WO CONTRAST (ROUTINE) Observed: 07/19/2024 2:07 PM Status: C Source: [facility] ORIGINAL REPORT TITLE OF EXAM: MR BRAIN W AND [...] gland and regional optic nerve/chiasm and orbital webb matter, and T1 signal isointense to regional optic nerves/chiasm and orbital webb matter. There is a bilobed appearance best [...] signed in approved by the interpreting radiologist. ADDENDUM #1 ADDENDUM to MR BRAIN W AND WO CONTRAST (ROUTINE) Addendum is made following new addition of sequences apparently acquired during image acquisition that were not presented at the time of the original dictation: A variant of a pituitary protocol was performed, though the mjjtsz-wq-pjfs are suboptimal to evaluate the pituitary gland. Initially reported differential considerations remain unchanged based on the newly presented sequences. ADDENDUM to MR BRAIN W AND WO CONTRAST (ROUTINE) Addendum is made following new addition of sequences apparently acquired during image acquisition that were not presented at the time of the original dictation: A variant of a pituitary protocol was performed, though the gkdrfc-jh-evxo are suboptimal to evaluate the pituitary gland. Initially reported differential considerations remain unchanged based on the newly presented sequences. ADDENDUM to MR BRAIN W AND WO CONTRAST (ROUTINE) Addendum is made following new addition of sequences apparently acquired during image acquisition that were not presented at the time of the original dictation: A variant of a pituitary protocol was performed, though the mjhmio-fq-adnh are suboptimal to evaluate the pituitary gland. Initially reported differential considerations remain unchanged based on the newly presented sequences. Addendum is made following new addition of sequences apparently acquired during image acquisition that were not presented at the time of the original dictation: A variant of a pituitary protocol was performed, though the opdhyq-dk-iaqr are suboptimal to evaluate the pituitary gland. Initially reported differential considerations remain unchanged based on the newly presented sequences. Addendum is made following new addition of sequences apparently acquired during image acquisition that were not presented at the time of the original dictation: A variant of a pituitary protocol was performed, though the kvnocd-nc-snzl are suboptimal to evaluate the pituitary gland. [...] gland and regional optic nerve/chiasm and orbital webb matter, and T1 signal isointense to regional optic nerves/chiasm and orbital webb matter. There is a bilobed appearance best [...] signed in approved by the interpreting radiologist. ALLERGIES DATE TYPE / CODE NAME / CODE REACTION SEVERITY SOURCE 11/25/2023 DRUG INGREDI/[id number](SNOMED CT) MORPHINE Hives [facility] 11/09/2023 Drug Class/[id number] (SNOMED CT) PENICILLINS Hives~Itching~Rash ~Unknown Low [facility] ENCOUNTERS ADMIT/DISCHARGE ACCOUNT NUMBER ADMITTING ENCOUNTER CLASS LOCATION SOURCE 01/25/2025/ 5 [id number] Ambulatory Building:[facility] EPIC 01/20/2025/ 5 [id number] Ambulatory Building:HRT [facility] 12/30/2024/ 5 [id number] Ambulatory Building:CCB [facility] 11/24/2024/ 5 [id number] Ambulatory Building:M [facility] EPIC 11/22/2024/ 5 [id number] Ambulatory Building:WNZ NEURO [facility] EPIC 11/14/2024/ 5 [id number] Ambulatory Building:NOM S NB OB [facility] EPIC 10/31/2024/ 5 [id number] Ambulatory Building:[facility] EPIC 10/17/2024/ 5 [id number] Ambulatory Building:FNR MR [facility] EPIC 10/04/2024/ 5 [id number] Ambulatory Building:ST NEURO [facility] EPIC 07/27/2024/ 4 [id number] Ambulatory Building:[facility] EPIC 07/19/2024/ 4 [id number] Ambulatory Building:NOM SSR [facility] EPIC 06/27/2024/ 4 [id number] Ambulatory Building:[facility] EPIC PAYERS ENCOUNTER GUARANTOR PAYER SUBSCRIBER SOURCE 01/25/2025 NORMA FARIAS: [id number] [place] [address]Kcf: () () Primary Insurance:[facility] Number: [id number] Date:2023-09-07 NORMA FARIAS: [id number] [place] [address] [facility] EPIC 01/20/2025 [facility] Number: [id number] Date:2022-09-07 NORMA FARIAS: [id number] [place] [address] [facility] 12/30/2024 Primary Insurance:[facility] Number: [id number] Date:2022-09-07 NORMA Brandt GENOB: [id number] [place] [address] [facility] 11/24/2024 NORMA Karly LORAB: [place] [address]Lkp: (HP) (WP) [facility] Number: [id number] Date:2023-09-07 NORMA Karly FARIAS: [id number] [place] [address] [facility] EPIC 11/22/2024 NORMA FARIAS: [place] [address]Bkk: (HP) (WP) Primary Insurance:[facility] Number: [id number] Date:2023-09-07 NORMA Karly LORAB: [id number] [place] [address] [facility] EPIC 11/14/2024 NORMA FARIAS: [place] [address]Tpk: (HP) (WP) Primary Insurance:[facility] Number: [id number] Date:2023-09-07 NORMA FARIAS: [id number] [place] [address] [facility] EPIC 10/31/2024 NORMA FARIAS: [place] [facility] [place] [address]Xet: (HP) (WP) Primary Insurance:[facility] olicy Number: [id number] Date:2023-09-07 NORMA DIAZB: [id number] [place] [address] [facility] EPIC 10/17/2024 NORMA DIAZB: [place] [address]Hho: (HP) (WP) [facility] Number: [id number] Date:2023-09-07 NORMA DIAZB: [id number] [place] [address] [facility] EPIC 10/04/2024 NORMA DIAZB: [place] [address]Maz: (HP) (WP) [facility] Number: [id number] Date:2023-09-07 NORMA DIAZB: [id number] [place] [id number] [facility] EPIC 07/27/2024 NORMA DIAZB: [place] [address]Mzt: (HP) (WP) [facility] Number: [id number] Date:2023-09-07 NORMA DIAZB: [id number] [place] [address] [facility] EPIC 07/19/2024 NORMA M GENOB: [place] [address]Vmy: (HP) (WP) Primary Insurance[facility] Number: [id number] Date:2023-09-07 NORMA Brandt GENOB: [id number] [place] [address] [facility] 06/27/2024 NORMA FARIAS: [place] [address]Wsp: (HP) (WP) [facility] Number: [id number] Date:2023-09-07 NORMA FARIAS: [id number] [place] [address] [facility] EPIC
--- NOTE | 2025-01-31 08:30 | CA_ITS ---
Patient Name: LIANE DIAZ MR#: [id number] : 1980 Exam Date: 01/31/2025 Ordering Doctor: DR. ELA COLEMAN M.D. ECHOCARDIOGRAM REPORT PROCEDURE: CA ECHO DOPPLER COMPLETE INDICATIONS: Precordial pain COMPARISON: None. DESCRIPTION: COMPLETE ECHOCARDIOGRAM Real-time transthoracic echocardiography with 2D, M-mode, spectral and color flow Doppler performed. QUALITY: Technical quality was good. LEFT VENTRICLE: Normal chamber size. Normal left ventricular wall thickness. Normal systolic function. LV EF: Calculated left ventricular ejection fraction is 61%. Normal left ventricular ejection fraction, (>55%). DIASTOLIC: Normal diastolic function. ATRIAL SEPTUM: Visually appears intact. LEFT ATRIUM: Normal chamber size. RIGHT ATRIUM: Normal chamber size. RIGHT VENTRICLE: Normal chamber size. Normal right ventricular systolic function. TRICUSPID VALVE: Normal mobility and thickness. No stenosis with mild regurgitation. No evidence of pulmonary hypertension. RVSP 29 mmHg MITRAL VALVE: Normal mobility and thickness. No evidence of mitral valve stenosis. There is no mitral annular calcification. No mitral regurgitation. AORTIC VALVE: Normal trileaflet appearance. No visible sclerosis. Normal leaflet mobility. No evidence of aortic valve stenosis. No aortic regurgitation. AORTIC ROOT: Normal diameter and appearance, measuring 2.8 cm. PULMONIC VALVE: Normal thickness and mobility. No stenosis. No regurgitation. PERICARDIUM: No evidence of pericardial effusion. IVC: Collapses with inspirations. IVC is normal in size. PLEURA: CONCLUSION: 1. Normal ventricular size and systolic function. Estimated LVEF is 60 to 65%. 2. Normal diastolic function. 3. No significant valvular dysfunction. 4. Normal right-sided pressures. Adult Echocardiography Procedure Report Left Ventricle LVEDD (3.7 - 5.6 cm): 4.16 cm LVESD (2.2 - 4.0 cm): 3.04 cm LVIVS thickness (0.6 - 1.2 cm): 0.81 cm LVPW thickness (0.5 - 1.0 cm): 0.87 cm e': 0.15 m/s E - e': 4.95 LVOT Max Gradient: 2.09 mm[Hg] LVOT Area (cm2): 0.72 m/s Peak Velocity (LVOT): 0.72 m/s Mean Velocity (LVOT): 0.45 m/s LVOT Diameter 2.13 cm Left Atrium LA Volume Index (2D A2C): 30.28 ml/m2 Left Atrium Systolic Dimension: 2.59 cm Mitral Valve MV E to A Ratio: 1.39 Mitral Valve A-Wave Peak Velocity: 0.55 m/s Mitral Valve E-Wave Peak Velocity: 0.76 m/s Right Ventricle Aorta AO Root Diam: 2.81 cm Aortic Valve AoV Area (Peak Minor): 2.75 cm2, 2.75 cm2 AoV Area (VTI): 2.94 cm2, 2.94 cm2 Peak Velocity(Antegrade Flow): 0.94 m/s Peak Gradient(Antegrade Flow): 3.53 mm[Hg] Mean Velocity(Antegrade Flow): 0.58 m/s Mean Gradient(Antegrade Flow): 1.61 mm[Hg] Velocity Time Integral: 20.23 cm Tricuspid Valve Peak Velocity (Regurgitant Flow): 2.54 m/s Pulmonic Valve Mean Gradient: 1.10 mm[Hg] Mean Velocity: 0.48 m/s Peak Velocity: 0.75 m/s, 0.78 m/s Peak Gradient: 2.45 mm[Hg], 2.23 mm[Hg] Right Atrium Right Atrium Systolic Pressure: 25.40 ml, 25.40 ml Dictated by: Bebeto Arnold M.D. on 01/31/2025 at 13:27 Approved by: Bebeto Arnold M.D. on 01/31/2025 at 13:29
== END 2025-01-31 07:59 | disposition home or self-care (01) ==
LOC: CARD 07:58
PROVIDERS: PCP Nurse Practitioner; Visit Provider Internal Medicine Cardiovascular Disease
DX: R07.2 Precordial pain (principal)
CPT/HCPCS: 93306